=== PATIENT | female | born 1980 | race African-American/Black ===

== ENCOUNTER 2023-08-02 18:25 | Emergency (ER) | payer OTHER ==
--- OUTSIDE RECORDS SUMMARY | 2023-08-02 18:29 | XMS REPORT | Continuity of Care Document ---
Author Name Unknown Address [address] [facility] [address] [place] [address] [facility] Address [address] [facility] [address] [place] [address] Care Team Providers Care Leg Man Name Role Phone Anand Garcia Attending Clinician Unavailable Stevan Attending Clinician UnavailAlondra Barrios Attending Clinician Unavailable Robin Baker Attending Clinician Unavailable Ap Lujan Attending Clinician Unavailable Stevan Admitting Clinician UnavailDean Palacios Admitting Clinician Unavailable Physician, No Primary Care Admitting Clinician U navailable Payers Payer Name Policy Type Policy Number Effective Date Expirati on Date Source [place]IC[place]: [email or web address] [id number] 2004 00:00:00 Problems Condition Name Condition Details Condition Category Status Onset Date Resolution Date Last Treatment Date Treating Clinician Comments Source Seizure Seizure Problem Active 2021-08 00:00: 00 [facility] Sleep disorder Sleep Disorder Problem Active 2021-08 00:00: 00 [facility] Prediabete s Prediabete s Problem Active 2021-08 00:00: 00 [facility] Chronic insomnia Chronic Insomnia Problem Active 2021-08 00:00: 00 [facility] Morbid obesity Morbid Obesity Problem Active 2021-08 00:00: 00 [facility] Anxiety Anxiety Problem Active 2021-08 00:00: 00 [facility] Chronic pain syndrome Chronic Pain Syndrome Problem Active 2021-08 00:00: 00 [facility] [id number] Other chronic pain Problem [facility] [id number] Lumbago with sciatica, left side Problem [facility] [id number] Irregular menses Problem [facility] [id number] Anemia, unspecifie d type Problem [facility] [id number] Pain in unspecifie d knee Problem [facility] [id number] Primary insomnia Problem [facility] [id number] Tension headache Problem [facility] Allergies, Adverse Reactions, Alerts Allergy Name Allergy Type Status Severity Reaction(s) Onset Date Inactive Date Treating Clinician Comments Source No Known Allergie s DA Active U 2011-08 00:00: 00 [facility] Social History Social Habit Start Date Stop Date Quantity Comments Source History of Tobacco Use Current Smoker [facility] Sex Assigned At Female [facility] Smoking Status Start Date Stop Date Source Never Smoker [facility] Current Smoker 2022-07-20 00:00:00 [facility] lin Medications Ordered Medication Name Filled Medication Name Start Date Stop Date Current Medication? Ordering Clinician Indication Dosage Frequency Signature (SIG) Comments Components Source Melatonin 10 MG Melatonin 10 MG 2021-08 00:00: 00 No QD Melatonin 10 MG Clotrimazol e 1 % Clotrimazol e 1 % 01-08 00:00: 00 No BID Clotrimazo le 1 % Terbinafine HCl 250 MG Terbinafine HCl 250 MG 01-08 00:00: 00 No 1{table t} QD Terbinafin e HCl 250 MG Cetirizine HCl 10 MG Cetirizine HCl 10 MG No 1{table t} QD Cetirizine HCl 10 MG Ibuprofen 800 MG Ibuprofen 800 MG No BID Ibuprofen 800 MG Ferrous Sulfate 325 (65 Fe) MG Ferrous Sulfate 325 (65 Fe) MG No 1{table t} QD Ferrous Sulfate 325 (65 Fe) MG zolpidem 10 mg tablet zolpidem 10 mg tablet No zolpidem 10 mg tablet [facility] cyclobenzap rine 10 mg tablet TAKE 1 TABLET BY MOUTH EVERY 8 HOURS NEEDED FOR PAIN OR MUSCLE SPASMS cyclobenzap rine 10 mg tablet TAKE 1 TABLET BY MOUTH EVERY 8 HOURS NEEDED FOR PAIN OR MUSCLE SPASMS No cyclobenza raffi 10 mg tablet TAKE 1 TABLET BY MOUTH EVERY 8 HOURS NEEDED FOR PAIN OR MUSCLE SPASMS [facility] diazepam 5 mg tablet Take 1 tablet 3 times a day by oral route. diazepam 5 mg tablet Take 1 tablet 3 times a day by oral route. No 1 TID diazepam 5 mg tablet Take 1 tablet 3 times a day by oral route. [facility] ergocalcife rol (vitamin D2) 1,250 mcg (50,000 unit) capsule TAKE 1 CAPSULE BY MOUTH EVERY WEEK ergocalcife rol (vitamin D2) 1,250 mcg (50,000 unit) capsule TAKE 1 CAPSULE BY MOUTH EVERY WEEK No ergocalcif kadi (vitamin D2) 1,250 mcg (50,000 unit) capsule TAKE 1 CAPSULE BY MOUTH EVERY WEEK [facility] FeroSul 325 mg (65 mg iron) tablet TAKE 1 TABLET BY MOUTH TWICE DAILY FeroSul 325 mg (65 mg iron) tablet TAKE 1 TABLET BY MOUTH TWICE DAILY No FeroSul 325 mg (65 mg iron) tablet TAKE 1 TABLET BY MOUTH TWICE DAILY [facility] furosemide 40 mg tablet TAKE 1 TABLET BY MOUTH EVERY DAY furosemide 40 mg tablet TAKE 1 TABLET BY MOUTH EVERY DAY No furosemide 40 mg tablet TAKE 1 TABLET BY MOUTH EVERY DAY [facility] ibuprofen 800 mg tablet TAKE 1 TABLET BY MOUTH THREE TIMES DAILY NEEDED FOR PAIN ibuprofen 800 mg tablet TAKE 1 TABLET BY MOUTH THREE TIMES DAILY NEEDED FOR PAIN No ibuprofen 800 mg tablet TAKE 1 TABLET BY MOUTH THREE TIMES DAILY NEEDED FOR PAIN [facility] nabumetone 500 mg tablet Take 1 tablet twice a day by oral route. nabumetone 500 mg tablet Take 1 tablet twice a day by oral route. No 1 BID nabumetone 500 mg tablet Take 1 tablet twice a day by oral route. [facility] potassium chloride ER 8 mEq tablet,exte nded release TAKE 1 TABLET BY MOUTH EVERY DAY potassium chloride ER 8 mEq tablet,exte nded release TAKE 1 TABLET BY MOUTH EVERY DAY No potassium chloride ER 8 mEq tablet,ext ended release TAKE 1 TABLET BY MOUTH EVERY DAY [facility] zolpidem 10 mg tablet zolpidem 10 mg tablet No zolpidem 10 mg tablet [facility] ergocalcife rol (vitamin D2) 1,250 mcg (50,000 unit) capsule TAKE 1 CAPSULE BY MOUTH EVERY WEEK ergocalcife rol (vitamin D2) 1,250 mcg (50,000 unit) capsule TAKE 1 CAPSULE BY MOUTH EVERY WEEK No ergocalcif kadi (vitamin D2) 1,250 mcg (50,000 unit) capsule TAKE 1 CAPSULE BY MOUTH EVERY WEEK [facility] FeroSul 325 mg (65 mg iron) tablet TAKE 1 TABLET BY MOUTH TWICE DAILY FeroSul 325 mg (65 mg iron) tablet TAKE 1 TABLET BY MOUTH TWICE DAILY No FeroSul 325 mg (65 mg iron) tablet TAKE 1 TABLET BY MOUTH TWICE DAILY [facility] furosemide 40 mg tablet TAKE 1 TABLET BY MOUTH EVERY DAY furosemide 40 mg tablet TAKE 1 TABLET BY MOUTH EVERY DAY No furosemide 40 mg tablet TAKE 1 TABLET BY MOUTH EVERY DAY [facility] ibuprofen 800 mg tablet TAKE 1 TABLET BY MOUTH THREE TIMES DAILY NEEDED FOR PAIN ibuprofen 800 mg tablet TAKE 1 TABLET BY MOUTH THREE TIMES DAILY NEEDED FOR PAIN No ibuprofen 800 mg tablet TAKE 1 TABLET BY MOUTH THREE TIMES DAILY NEEDED FOR PAIN [facility] Ozempic 1 mg/dose (4 mg/3 mL) subcutaneou s pen injector Inject 1 mg every week by subcutaneou s route for 84 days. Ozempic 1 mg/dose (4 mg/3 mL) subcutaneou s pen injector Inject 1 mg every week by subcutaneou s route for 84 days. No 1mg Q1W Ozempic 1 mg/dose (4 mg/3 mL) subcutaneo us pen injector Inject 1 mg every week by subcutaneo us route for 84 days. [facility] potassium chloride ER 8 mEq tablet,exte nded release TAKE 1 TABLET BY MOUTH ONCE DAILY potassium chloride ER 8 mEq tablet,exte nded release TAKE 1 TABLET BY MOUTH ONCE DAILY No potassium chloride ER 8 mEq tablet,ext ended release TAKE 1 TABLET BY MOUTH ONCE DAILY [facility] zolpidem 10 mg tablet zolpidem 10 mg tablet No zolpidem 10 mg tablet [facility] ergocalcife rol (vitamin D2) 1,250 mcg (50,000 unit) capsule TAKE 1 CAPSULE BY MOUTH EVERY WEEK ergocalcife rol (vitamin D2) 1,250 mcg (50,000 unit) capsule TAKE 1 CAPSULE BY MOUTH EVERY WEEK No ergocalcif kadi (vitamin D2) 1,250 mcg (50,000 unit) capsule TAKE 1 CAPSULE BY MOUTH EVERY WEEK [facility] FeroSul 325 mg (65 mg iron) tablet TAKE 1 TABLET BY MOUTH TWICE DAILY FeroSul 325 mg (65 mg iron) tablet TAKE 1 TABLET BY MOUTH TWICE DAILY No FeroSul 325 mg (65 mg iron) tablet TAKE 1 TABLET BY MOUTH TWICE DAILY [facility] furosemide 40 mg tablet TAKE 1 TABLET BY MOUTH EVERY DAY furosemide 40 mg tablet TAKE 1 TABLET BY MOUTH EVERY DAY No furosemide 40 mg tablet TAKE 1 TABLET BY MOUTH EVERY DAY [facility] ibuprofen 800 mg tablet TAKE 1 TABLET BY MOUTH THREE TIMES DAILY NEEDED FOR PAIN ibuprofen 800 mg tablet TAKE 1 TABLET BY MOUTH THREE TIMES DAILY NEEDED FOR PAIN No ibuprofen 800 mg tablet TAKE 1 TABLET BY MOUTH THREE TIMES DAILY NEEDED FOR PAIN [facility] Ozempic 1 mg/dose (4 mg/3 mL) subcutaneou s pen injector Inject 1 mg every week by subcutaneou s route for 84 days. Ozempic 1 mg/dose (4 mg/3 mL) subcutaneou s pen injector Inject 1 mg every week by subcutaneou s route for 84 days. No 1mg Q1W Ozempic 1 mg/dose (4 mg/3 mL) subcutaneo us pen injector Inject 1 mg every week by subcutaneo us route for 84 days. [facility] potassium chloride ER 8 mEq tablet,exte nded release TAKE 1 TABLET BY MOUTH ONCE DAILY potassium chloride ER 8 mEq tablet,exte nded release TAKE 1 TABLET BY MOUTH ONCE DAILY No potassium chloride ER 8 mEq tablet,ext ended release TAKE 1 TABLET BY MOUTH ONCE DAILY [facility] Vital Signs Vital Name Observation Time Observation Value Comments S ource BP Diastolic 2022-12-01 00:00:00 70 mm[Hg] [facility] Height 2022-12-01 00:00:00 65 [in_i] [place] [facility] BMI (Body Mass Index) 2022-12-01 00:00:00 41.6 kg/m2 [facility] BP Systolic 2022-12-01 00:00:00 110 mm[Hg] [facility] Body Weight 2022-12-01 00:00:00 249.8 [lb_av] [facility] BP Diastolic 2022-08-24 00:00:00 80 mm[Hg] [facility] Height 2022-08-24 00:00:00 65 [in_i] [place] [facility] BMI (Body Mass Index) 2022-08-24 00:00:00 42.1 kg/m2 [facility] BP Systolic 2022-08-24 00:00:00 130 mm[Hg] [facility] Body Weight 2022-08-24 00:00:00 253 [lb_av] [facility] temperature 2022-07-20 10:00:00 97.8 [degF] [facility] heart rate 2022-07-20 10:00:00 68 /min [facility] height-cm 2022-07-20 10:00:00 154.94 cm [facility] weight-kg 2022-07-20 10:00:00 115.67 kg [facility] bmi 2022-07-20 10:00:00 48.18 kg/m2 [facility] respiratory rate 2022-07-20 10:00:00 22 /min [facility] oximetry 2022-07-20 10:00:00 98 % [facility] blood pressure systolic 2022-07-20 10:00:00 148 mm[Hg] [facility] blood pressure diastolic 2022-07-20 10:00:00 69 mm[Hg] [facility] Procedures Procedure Date / Time Performed Performing Clinicia n Source MAMMO, screening, bilateral 2022-12-01 00:00:00 [facility] Section 2012-08-28 00:00:00 [facility] Section 2010-08-28 00:00:00 [facility] Section 2008-08-28 00:00:00 [facility] Procedure on Stomach 2007-08-28 00:00:00 [facility] Section 2007-08-28 00:00:00 [facility] Practice Section 2006-08-28 00:00:00 [facility] Section 2004-08-28 00:00:00 [facility] Leg Repair 1991-08-28 00:00:00 [facility] Plan of Care Planned Activity Planned Date Details Comments Source Diagnostic Test Pending 2022-12-01 00:00:00 CBC w/ auto diff [code = CBC w/ auto diff] [facility] Diagnostic Test Pending 2022-12-01 00:00:00 CMP, serum or plasma [code = CMP, serum or plasma] [facility] Diagnostic Test Pending 2022-12-01 00:00:00 lipid panel, serum [code = lipid panel, serum] [facility] Diagnostic Test Pending 2022-12-01 00:00:00 TSH, serum or plasma [code = TSH, serum or plasma] [facility] Diagnostic Test Pending 2022-12-01 00:00:00 HbA1c (hemoglobin A1c), blood [code = HbA1c (hemoglobin A1c), blood] [facility] Instructions [facility] Encounters Start Date/Time End Date/Time Encounter Type Admission Type Attending [facility] Care Department Encounter ID Source 2023-03-24 10:51:00 Outpatient Anand Garcia MALABAR [id number] [facility] 2022-07-20 11:02:02 [facility] [id number] [facility] 2022-07-18 11:38:02 Outpatient Jose [facility] [id number] [facility] 2022-01-13 11:45:02 Outpatient Garcia [facility] [id number] [facility] 2023-02-15 00:00:00 2023-02-15 00:00:00 Outpatient Merced AKBAR [facility] [id number] [facility] 2022-12-01 00:00:00 2022-12-01 00:00:00 Outpatient Hunter [facility] [id number] [facility] 2022-12-01 00:00:00 2022-12-01 00:00:00 Bud Cedeno MD: [id number] [facility], [address], [place] [address] , [facility]. [facility] [place] [facility] [place] - VM_HOU_Memo rial [id number] [facility] 2022-10-20 00:00:00 2022-10-20 00:00:00 [facility] [id number] [facility] 2022-10-20 00:00:00 2022-10-20 00:00:00 Outpatient Franquiz_J VFP VFP [id number] [facility] 2022-08-24 00:00:00 2022-08-24 00:00:00 Outpatient Franquiz_J VFP VFP [id number] [facility] 2022-08-24 00:00:00 2022-08-24 00:00:00 Outpatient Franquiz_J VFP VFP [id number] [facility] 2022-08-24 00:00:00 2022-08-24 00:00:00 Bud Cedeno MD: [id number] [facility], [address], [place] [address] , Ph. [facility] [place] - [facility] [place] - [facility] [id number] [facility] 2022-08-12 00:00:00 2022-08-12 00:00:00 Outpatient Franquiz_J VFP VFP [id number] [facility] 2022-08-12 00:00:00 2022-08-12 00:00:00 Outpatient Franquiz_J VFP VFP [id number] [facility] 2022-07-20 00:00:00 2022-07-20 00:00:00 E/M OFFICE VISIT EST PATIENT LEVEL 3 [facility] [id number] [facility] 2022-07-12 09:48:00 2022-07-12 12:30:00 Emergency EM Alondra Sagastume [facility] [id number] [facility] 2022-03-24 23:04:00 2022-03-25 02:17:00 Emergency EM Robin BakerWDesmond S[facility] [id number] [facility] 2022-03-24 23:04:00 2022-03-25 02:17:00 Emergency EM [facility] [id number] [facility] 2022-02-15 09:26:00 2022-02-15 11:12:00 [facility] [id number] [facility] 2022-02-15 09:26:00 2022-02-15 11:12:00 Emergency EM [facility] [id number] [facility] 2021-02-24 08:46:00 2021-02-24 08:50:00 Emergency EM Ap Lujan [facility] G[facility]I [id number] [facility] 2019-08-31 15:59:00 2019-09-03 02:52:46 Inpatient [facility] [id number] [facility] Results Test Description Test Time Test Comments Results Resul t Comments Source - XR KNEE 3 V LT 2022-07-12 11:23:00 [facility] 1980 Sex: F Patient Name: RAIN CHA Unit No: [id number] EXAMS: CPT CODE: [id number] XR KNEE 3 V LT [id number] EXAMINATION: - XR KNEE 3 V LT. LOCATION: B2. HISTORY: KNEE PAIN. COMPARISON: Radiograph dated 05/21/2018. TECHNIQUE: AP, lateral, and oblique views of the left knee were obtained. FINDINGS: There is depression of the medial tibial plateau with sclerosis, similar to prior exam. No acute fracture or dislocation is identified. Surgical staple is seen in the posteromedial proximal tibia, similar to prior exam. IMPRESSION: No acute osseous abnormality is identified. Remote medial tibial plateau injury, similar to prior exam. at 1123 Reported and signed by: Savi Corbin MD CC: Dean Dubon MD; Jaun Hood NP Technologist: Alla Rodriguez (RT)(R) Transcrpt Date/Tm/Trnsp: 07/12/2022 (1123) [email or web address] Orig Print D/T: S: 07/12/2022 (1126) [facility] NAME: RAIN CHA [id number] PHYS: [id number] - Erwin,Jaun LÓ[place] [address] : 1980 AGE: 41 SEX: F LOC: ZMAE PHONE #: [phone] EXAM DATE: 07/12/2022 STATUS: REG ER FAX #: [phone] RADIOLOGY NO: PAGE 1 Signed Report - CT HEAD/BRAIN W/O CONT 2022-03-25 01:46:00 [facility] 1980 Sex: F Patient Name: RAIN CHA Unit No: [id number] EXAMS: CPT CODE: [id number] CT HEAD/BRAIN W/O CONT 45106 CT of the brain without contrast and cervical spine CT facial bones without IV contrast. History: Headache Technique: Contiguous axial images were obtained from the skull base to the vertex without the administration of intravenous contrast. Contiguous axial CT images were obtained from the skull base through T1 without contrast. Coronal and sagittal reformatted images of the cervical spine were also performed. CT of the facial without IV contrast was also performed One or more of the following dose reduction techniques were used: Automated exposure control, adjustment of the mA and/or kV according to patient size, and/or utilization of iterative reconstruction technique. Comparison: None available Findings: CT brain: The ventricles and sulci are normal in size and symmetric. The basal cisterns are patent. There is no mass effect or midline shift. There is no acute intracranial hemorrhage. There are no extra-axial fluid collections. CT of the facial bones: Beam hardening from patient's dental work limits evaluation. No evidence of an acute fracture or dislocation. No intraconal collection or induration is seen to suggest retrobulbar hematoma. The paranasal sinuses and mastoid air cells are relatively clear. CT cervical spine: The cervical spine is visualized from the skull base through T1. No evidence of acute fracture or traumatic subluxation demonstrated. No paraspinal soft tissue swelling is noted. No significant degenerative changes are seen. Impression: No acute intracranial hemorrhage or significant mass effect. No acute traumatic osseous cervical injury No acute facial bone fracture or dislocation within limitations above [facility] NAME: RAIN CHA PHYS: [place] [address] : 1980 AGE: 41 SEX: F LOC: [employer] PHONE #: [phone] EXAM DATE: 03/25/2022 STATUS: REG ER FAX #: [phone] RAD #: D/C DT PAGE 1 Signed Report (CONTINUED) Patient Name: RAIN CHA Unit No: [id number] EXAMS: CPT CODE: [id number] CT HEAD/BRAIN W/O CONT 52149 (Continued) at 0146 Reported and signed by: Francine Lyon CC: Dean Dubon MD; Robin Baker MD Technologist: Jhonny Dodson CTDI: DLP: Trnscrpt: 03/25/2022 (0146) [email or web address] [facility] NAME: RAIN CHA PHYS: Robin Peter MD [place] [id number] : 1980 AGE: 41 SEX: F LOC: Z[employer] PHONE #: [phone] EXAM DATE: 03/25/2022 STATUS: REG ER FAX #: [phone] RAD #: D/C DT PAGE 2 Signed Report Patient Name: RAIN CHA Unit No: [id number] EXAMS: CPT CODE: [id number] CT HEAD/BRAIN W/O CONT 07907 (Continued) Orig Print D/T: S: 03/25/2022 (0149) [facility] NAME: RAIN CHA [id number] PHYS: [place] [address] : 1980 AGE: 41 SEX: F LOC: HEATH PHONE #: [phone] EXAM DATE: 03/25/2022 STATUS: REG ER FAX #: [phone] RAD #: D/C DT PAGE 3 Signed Report - CT C-SPINE W/O CONT 2022-03-25 01:46:00 [facility] 1980 Sex: F Patient Name: RAIN CHA Unit No: [id number] EXAMS: CPT CODE: [id number] CT C-SPINE W/O CONT 79198 CT of the brain without contrast and cervical spine CT facial bones without IV contrast. History: Headache Technique: Contiguous axial images were obtained from the skull base to the vertex without the administration of intravenous contrast. Contiguous axial CT images were obtained from the skull base through T1 without contrast. Coronal and sagittal reformatted images of the cervical spine were also performed. CT of the facial without IV contrast was also performed One or more of the following dose reduction techniques were used: Automated exposure control, adjustment of the mA and/or kV according to patient size, and/or utilization of iterative reconstruction technique. Comparison: None available Findings: CT brain: The ventricles and sulci are normal in size and symmetric. The basal cisterns are patent. There is no mass effect or midline shift. There is no acute intracranial hemorrhage. There are no extra-axial fluid collections. CT of the facial bones: Beam hardening from patient's dental work limits evaluation. No evidence of an acute fracture or dislocation. No intraconal collection or induration is seen to suggest retrobulbar hematoma. The paranasal sinuses and mastoid air cells are relatively clear. CT cervical spine: The cervical spine is visualized from the skull base through T1. No evidence of acute fracture or traumatic subluxation demonstrated. No paraspinal soft tissue swelling is noted. No significant degenerative changes are seen. Impression: No acute intracranial hemorrhage or significant mass effect. No acute traumatic osseous cervical injury No acute facial bone fracture or dislocation within limitations above [facility] NAME: RAIN CHA PHYS: [place] [address] : 1980 AGE: 41 SEX: F LOC: [employer] PHONE #: [phone] EXAM DATE: 03/25/2022 STATUS: REG ER FAX #: [phone] RAD #: D/C DT PAGE 1 Signed Report (CONTINUED) Patient Name: RAIN CHA Unit No: [id number] EXAMS: CPT CODE: [id number] CT C-SPINE W/O CONT 85250 (Continued) at 0146 Reported and signed by: Francine Lyon CC: Dean Dubon MD; Robin Baker MD Technologist: Jhonny Dodson CTDI: DLP: Trnscrpt: 03/25/2022 (0146) [email or web address] [facility] NAME: RAIN CHA PHYS: [place] [address] : 1980 AGE: 41 SEX: F LOC: [employer] PHONE #: [phone] EXAM DATE: 03/25/2022 STATUS: REG ER FAX #: [phone] RAD #: D/C DT PAGE 2 Signed Report Patient Name: RAIN CHA Unit No: [id number] EXAMS: CPT CODE: [id number] CT C-SPINE W/O CONT 95970 (Continued) Orig Print D/T: S: 03/25/2022 (0149) [facility] NAME: RAIN CHA [id number] PHYS: [place] [address] : 1980 AGE: 41 SEX: F LOC: Jose AlfredoMAE PHONE #: [phone] EXAM DATE: 03/25/2022 STATUS: REG ER FAX #: [phone] RAD #: D/C DT PAGE 3 Signed Report - CT MAXIFAC W/O CONTRAST 2022-03-25 01:46:00 [facility] 1980 Sex: F Patient Name: RAIN CHA Unit No: [id number] EXAMS: CPT CODE: [id number] CT MAXIFAC W/O CONTRAST 89008 CT of the brain without contrast and cervical spine CT facial bones without IV contrast. History: Headache Technique: Contiguous axial images were obtained from the skull base to the vertex without the administration of intravenous contrast. Contiguous axial CT images were obtained from the skull base through T1 without contrast. Coronal and sagittal reformatted images of the cervical spine were also performed. CT of the facial without IV contrast was also performed One or more of the following dose reduction techniques were used: Automated exposure control, adjustment of the mA and/or kV according to patient size, and/or utilization of iterative reconstruction technique. Comparison: None available Findings: CT brain: The ventricles and sulci are normal in size and symmetric. The basal cisterns are patent. There is no mass effect or midline shift. There is no acute intracranial hemorrhage. There are no extra-axial fluid collections. CT of the facial bones: Beam hardening from patient's dental work limits evaluation. No evidence of an acute fracture or dislocation. No intraconal collection or induration is seen to suggest retrobulbar hematoma. The paranasal sinuses and mastoid air cells are relatively clear. CT cervical spine: The cervical spine is visualized from the skull base through T1. No evidence of acute fracture or traumatic subluxation demonstrated. No paraspinal soft tissue swelling is noted. No significant degenerative changes are seen. Impression: No acute intracranial hemorrhage or significant mass effect. No acute traumatic osseous cervical injury No acute facial bone fracture or dislocation within limitations above [facility] NAME: RAIN CHA PHYS: Robin Peter MD [place] [id number] : 1980 AGE: 41 SEX: F LOC: Z.ERS PHONE #: [phone] EXAM DATE: 03/25/2022 STATUS: REG ER FAX #: [phone] RAD #: D/C DT PAGE 1 Signed Report (CONTINUED) Patient Name: RAIN CHA Unit No: [id number] EXAMS: CPT CODE: [id number] CT MAXIFAC W/O CONTRAST 70580 (Continued) at 0146 Reported and signed by: Francine Lyon CC: Dean Dubon MD; Robin Baker MD Technologist: Jhonny Dodson CTDI: DLP: Trnscrpt: 03/25/2022 (0146) t.SDR.SR31 [facility] NAME: RAIN CHA PHYS: [place] [address] : 1980 AGE: 41 SEX: F LOC: Z.ERS PHONE #: [phone] EXAM DATE: 03/25/2022 STATUS: REG ER FAX #: [phone] RAD #: D/C DT PAGE 2 Signed Report Patient Name: RAIN CHA Unit No: [id number] EXAMS: CPT CODE: [id number] CT MAXIFAC W/O CONTRAST 04169 (Continued) Orig Print D/T: S: 03/25/2022 (0149) [facility] NAME: RAIN CHA [id number] PHYS: [place] [address] : 1980 AGE: 41 SEX: F LOC: Z.ERS PHONE #: [phone] EXAM DATE: 03/25/2022 STATUS: REG ER FAX #: [phone] RAD #: D/C DT PAGE 3 Signed Report - XR CHEST 1V 2022-03-25 00:18:00 [facility] 1980 Sex: F Patient Name: RAIN CHA Unit No: [id number] EXAMS: CPT CODE: [id number] XR CHEST 1V 33952 EXAM: - XR CHEST 1V Location code:C3 HISTORY: Chest Pain COMPARISON: 01/28/2019 FINDINGS: Single AP view of the chest is provided. Heart size and vascularity are within normal limits. The lungs are clear of focal consolidation. No effusion, pneumothorax, or acute osseous abnormality. IMPRESSION: 1. No radiographic evidence of acute cardiopulmonary process. at 0018 Reported and signed by: Sumit Fields MD CC: Dean Dubon MD; Robin Baker MD Technologist: Christa Bello, RT(R) Transcrpt Date/Tm/Trnsp: 03/25/2022 (0018) [email or web address] Orig Print D/T: S: 03/25/2022 (0021) [facility] NAME: RAIN CHA [id number] PHYS: [place] [address] : 1980 AGE: 41 SEX: F LOC: Z.ERS PHONE #: [phone] EXAM DATE: 03/24/2022 STATUS: REG ER FAX #: [phone] RADIOLOGY NO: PAGE 1 Signed Report - XR SHOULDER 2+V RT 2022-03-25 00:18:00 [facility] 1980 Sex: F Patient Name: RAIN CHA Unit No: [id number] EXAMS: CPT CODE: [id number] XR SHOULDER 2+V RT 78044 EXAM: - XR SHOULDER 2+V RT HISTORY: Shoulder Pain Location code:C3 COMPARISON: None available time of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 evaluation. Patient was observed ambulating with no difficulty, was in no acute cardio-respiratory distress and no acute neurological changes noted. I discussed physical examination and diagnostic test results with patient including need for follow-up evaluation. I encouraged return to the nearest ED if symptoms change or worsens. Patient verbalizes understanding and states intention to ensure follow-up as advised. Ap Lujan 02/05/19 1552:HPI-Trauma Minor/Fall GeneralInitial Greet Date/Time 01/28/196 Physical Exam Vital SignsVital Signs Interpretation Diagnostics Lab Results InterpretationResults Patient Discharge Departure Vital Signs/ConditionVital Signs Supervising Physician Note MidLv Saw Pt Alone I was available for consultation as needed at all times during the patient's visit in the emergency department. at 2148 at 1552RPT #:[id number] OF REPORTEDEmergency department [id number].[id number] ilable for patient [id number] HCAWU
--- NOTE | 2023-08-02 19:25 | RAD REPORT ---
EXAM DESCRIPTION: RAD - Chest Single View - 08/02/2023 7:19 pm CLINICAL HISTORY: COUGH Chest pain. COMPARISON: <Comparisons> FINDINGS: Portable technique limits examination quality. Mild bilateral pulmonary opacities are present, likely accentuated by under aeration of the lungs. Th is may be related to interstitial infection/ viral bronchitis. The heart is upper limit normal in siz e. No displaced fractures.
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
[2023-08-02 21:15] VITALS: BP 131/108; TEMP 97.4; O2SAT 96
== END 2023-08-02 20:09 | disposition home or self-care (01) ==
LOC: ER 18:25
DX: R51.9 Headache, unspecified (principal); J20.9 Acute bronchitis, unspecified; M54.2 Cervicalgia; V49.49XA Driver injured in collision with other motor vehicles in traffic accident, initial encounter; Z28.310 Unvaccinated for COVID-19
CPT/HCPCS: 71045; 99283

== ENCOUNTER → 2023-10-13 | Emergency (ER) | payer OTHER, SELFPAY ==
--- OUTSIDE RECORDS SUMMARY | 2023-10-13 09:38 | XMS REPORT | Continuity of Care Document ---
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 ovarian cyst measuring 2.4 cm. LOCATION: B2 Impression By: Gregor - Marysol Beckman MD Point of Care TestingPulse Oximetry [...] Result Date Time Pulse Ox 100 02/15 0927 B/P 148/94 02/15 0927 B/P Mean 112 02/15 0927 O2 Delivery Room air 02/15 0927 Temp 98.7 02/15 0927 Pulse 75 02/15 0927 Resp 18 02/15 0927 Last Documented: Result Date Time Pulse Ox 100 02/15 0927 B/P 148/94 02/15 0927 B/P Mean 112 02/15 0927 O2 Delivery Room air 02/15 0927 Temp 98.7 02/15 0927 Pulse 75 02/15 0927 Resp 18 02/15 0927 All vital signs available at the time [...] Discharge/Care PlanReferralsProvider Referral: Vinny Velasquez MD Address: [address] [facility] [address] [place] [address] Provider Referral: Apolinar Escobedo DO Address: [address] [place] [address]. [address] [place] [address] Supervising Physician Note Resident Saw PtThis patient [...] exam and plan. at 1139 at 1144RPT #:[id number] OF REPORTEDEmerencompass health rehabilitation hospital department crqtkx4252-04-78O56:37:00Z.ZWES65533507-4986JFUci ilable for patient miafUVRAXDWXJHCNQN2556-03-08T13:39:41 [facility] 2021-02-24 08:55:00 YPfuxmnpfkb47097787y 8sa4BPHEc44LLnyVakoS8H3SD0Ntr SgwdFbCQ/s4tqOd7C293EX6FX3J0WrHBfE9671-76-14Z74:5 5:[address] [facility] ([facility])EMERGENCY PROVIDER REPORTREPORT#:[id number] REPORT STATUS: SignedDATE:02/24/21 TIME: 0855 PATIENT: RAIN CHA UNIT #: [id number]#: [id number] ROOM/BED:AGE: 40 SEX: F PCP PHYS: Dean Dubon AUTHOR: Clifton Hirsch NP [facility] * ALL edits or amendments must be made on the electronic/computer document * HPI-URI/Cough/Cold Free Text HPI NotesFree Text HPI Bszai04-rsdx-brj female presents to emergency room with complaints [...] 02/24 0847 O2 Delivery Room air 02/24 847 Temp 36.4 02/24 08 Pulse 84 02/24 0847 Resp 16 02/24 847 Last Documented: Result Date Time Pulse Ox 100 02/24 847 B/P 120/72 02/24 847 B/P Mean 88 02/24 847 O2 Delivery Room air 02/24 847 Temp 36.4 02/24 847 Pulse 84 02/24 08 Resp 16 02/24 847 Review of Vital Signs Reviewed Basic Physical [...] 100 On: Room air Interpretation Interpreted by me Pulse oximetry normal Time 846 Re-Evaluation MDM Free Text MDM NotesFree Text MDM Ugivt96-cdcv-qoz female with established seasonal allergies presents to emergency room with allergy exacerbation. No red flags, however patient was given Solu-Medrol in ED today and discharged with Medrol, montelukast, and Flonase for allergy control. Patient is strongly encouraged to follow-up with primary care provider who manages allergies. Given referral to flight instructor. Patient agrees with plan for discharge and outpatient follow-up. Verbalizes intent to seek continued care on an outpatient basis with primary care provider/deburring machine operator. Educated on conditions which warrant immediate medical [...] 0847 Temp 36.4 02/24 0847 Pulse 84 / 0847 Resp 16 02/24 0847 Last Documented: [...] BenefitsPatient Instructions ED Allergic Rhinitis, ED Seasonal AllergyReferralsPatel,Lilian Berlin MD Discharge NoteI have spoken with the [...] or a call to 911. at 0921RPT #:[id number] OF REPORTEDEmergen department panhed1081-40-18Q19:55:00Z.KUQY40792142-9373KKDow ilable for patient pvydIGVTZDFTLBGTRO3867-07-68I34:22:10 [facility] 2021-02-24 08:55:00 VEmyzrfokkb30629852t qbetcQFuCQ4+wgd4Mmqiueep6NUVG VNxZevYmGYc3kpJZq1+AzLWZrQDlyh6gtM3703-00-02F34:5 5:[address] [facility] ([facility])EMERGENCY PROVIDER REPORTREPORT#:[id number] REPORT STATUS: SignedDATE:02/24/21 TIME: 854 PATIENT: RAIN CHA UNIT #: [id number]#: [id number] ROOM/BED:AGE: 40 SEX: F PCP PHYS: Dean Dubon AUTHOR: Clifton Hirsch NP LOCATION: [facility] * ALL edits or amendments must be made on the electronic/computer document * Clifton Hirsch 02/24/21 0855:HPI-URI/Cough/Cold Free Text HPI NotesFree Text HPI Tpgog79-vwca-caf female presents to emergency room with complaints [...] Delivery Room air / 0847 Temp 36.4 02/24 0847 Pulse 84 / 0847 Resp 16 02/24 0847 Last Documented: Result Date Time Pulse Ox 100 / 0847 B/P 120/72 / 0847 B/P Mean 88 / 0847 O2 Delivery Room air / 0847 Temp 36.4 / 0847 Pulse 84 / 0847 Resp 16 02/24 0847 Review of [...] MDM Free Text MDM NotesFree Text MDM Deqyg72-grdf-wjn female with established seasonal allergies presents to emergency room with allergy exacerbation. No red flags, however patient was given Solu-Medrol in ED today and discharged with Medrol, montelukast, and Flonase for allergy control. Patient is strongly encouraged to follow-up with primary care provider who manages allergies. Given referral to flight instructor. Patient agrees with plan for discharge and outpatient follow-up. Verbalizes intent to seek continued care on an outpatient basis with primary care provider/deburring machine operator. Educated on conditions which warrant immediate medical [...] Instructions ED Allergic Rhinitis, ED Seasonal AllergyReferralsPateLilian bursh MD Discharge NoteI have spoken with the [...] the emergency department. at 0921 at 0943RPT #:[id number] OF REPORTLongview Regional Medical Center department chwhvz6506-28-69D63:55:00Z.UHEL34231719-3430BZQjr ilable for patient qcmeMGUURTCTHIKHEJ0352-53-72G18:43:59 [facility] 2019-08-31 16:04:00 LOwofkmeryh68300103W +58MzVoo+ATMbIa5tXhC4pYxwbR+G 5xbCkyeEI5TI7qYMYCrCKR9dVzCLtdym067056-12-10Q62:0 4:[address] [facility] PROVID[facility] REPORTREPORT#:[id number] REPORT STATUS: SignedDATE:08/31/19 TIME: 1604 PATIENT: RAIN CHA UNIT #: [id number]#: [id number] ROOM/BED:AGE: 38 SEX: F PCP PHYS: Dean Dubon AUTHOR: REE PERSAUD LOCATION: [facility] * ALL edits or amendments must be made on the electronic/computer document * HPI-URI/Cough/Cold GeneralConfirmed Patient YesPatient Type New patientInitial Greet Date/Time 08/31/19 5059 PresentationChief Complaint Cough, non-productive, Nasal congestion, Upper [...] )( Date 08/31/19 Discharge/Care PlanCounseled Regarding DiagnosisPrescriptionsprednisone, dmaion, zithromax, albuterol Discharge NoteI have spoken with [...] or a call to 911. at 1758RPT #:[id number] OF REPORTEDEmerencompass health rehabilitation hospital department vobaov2825-17-80I26:04:00Z.WZSV34611241-4711TAApp ilable for patient dgsaNFKRZNQFGZTJOM8387-13-54K34:58:50 [facility] 2019-08-31 16:04:00 KZjbyqkdegz73319455B [facility]/uCX0Bfl2jPJBEXYU7GJSn yUIBNuhk2LQlsScLZ5wrLNVhlWV3j2Z6FS5186-95-72V05:0 4:[address] [facility] ([facility])EMERGENCY PROVIDER REPORTREPORT#:[id number] REPORT STATUS: SignedDATE:08/31/19 TIME: 1604 PATIENT: RAIN CHA UNIT #: [id number]#: [id number] ROOM/BED:AGE: 38 SEX: F PCP PHYS: Dean Dubon AUTHOR: REE PERSAUD LOCATION: [facility] * ALL edits or [...] Result Date Time Pulse Ox 98 08/31 160 B/P 131/84 08/31 1606 B/P Mean 99.5 [...] 131/84 08/31 1606 B/P Mean 99.5 08/31 160 Temp 37.0 08/31 160 Pulse 79 08/31 [...] MidLv Saw Pt AloneI have reviewed the PA/TOPOGRAPHICAL SURVEYOR's note and plan of care. I was available for consultation as needed at all times during the patient's visit in the emergency department, however I was not consulted on this patient's management while in the ED nor did I evalaute this patient. at 1758 at 0958RPT #:[id number] OF REPORTEDEmergen department rvyzip1832-45-39G05:04:00Z.AWOU99055468-5052UASer ilable for patient qwmnSEVGTGDZEQKEKK6219-06-77W26:58:16 [facility] 2019-05-28 08:26:00 TQhsypelwqp09466074+ Yqp9NUsjsZhsLlXyxB/e/+Ie+rbby oyKS57JEs9gB9B+cdSqCbS61uKs08pCkSx9644-08-51C91:2 6:[address] [facility] ([facility])EMERGENCY PROVIDER REPORTREPORT#:[id number] REPORT STATUS: SignedDATE:05/28/19 TIME: 825 PATIENT: RAIN CHA UNIT #: [id number]#: [id number] ROOM/BED:AGE: 38 SEX: F PCP PHYS: No Primary Care PhysicianSERVICE AUTHOR: Marco Najera NP LOCATION: [facility] * ALL edits or [...] 05/28 075 O2 Delivery Room air 05/28 075 Temp 36.6 05/28 759 Pulse 88 05/28 075 Resp 18 05/28 075 Last Documented: Result Date Time Pulse Ox 98 05/28 0759 B/P 104/77 05/28 0759 B/P Mean 86 05/28 075 O2 Delivery Room air 05/28 075 Temp [...] B/P 104/77 / 0759 B/P Mean 86 05/28 0759 O2 Delivery Room air 05/28 075 Temp 36.6 05/28 075 Pulse 88 05/28 0759 Resp 18 05/28 075 Last Documented: Result Date Time Pulse Ox 98 05/28 0759 B/P 104/77 10 0759 B/P Mean 86 / 0759 O2 Delivery Room air 05/28 075 Temp 36.6 05/28 0759 Pulse 88 / 0759 Resp 18 05/28 0759 All vital signs available at the time of this entry have been reviewed. Clinical ImpressionClinical ImpressionPrimary Impression: Back pain Disposition DecisionDischarge )( Discharged to Home Yes )( Time 08 )( Date 05/28/19 Discharge/Care PlanCounseled Regarding Diagnosis, Prescriptions, Need for follow-up, When to returnto EDPrescriptionsrobaxinmotrin at 1726RPT #:[id number] OF REPORTEDEmergency department nhexce9338-89-58I16:26:00Z.WMZO34140613-0478DFNsj ilable for patient nhhdAEGVKYVOEBQPQU9259-32-72U67:26:40 [facility] 2019-05-28 08:26:00 HGpaahugyba45735954n hTcO9dLbonp+yEpU92LfM/QRj3CWU AXvz/dKMoiV7wXwZRz7cK5Sevp64gCxtjg7765-10-90H41:2 6:[address] [facility] ([facility])EMERGENCY PROVIDER REPORTREPORT#:[id number] REPORT STATUS: SignedDATE:05/28/19 TIME: 825 PATIENT: RAIN CHA UNIT #: [id number]#: [id number] ROOM/BED:AGE: 38 SEX: F PCP PHYS: No Primary Care PhysicianSERVICE AUTHOR: Marco Najera NP LOCATION: [facility] * ALL edits or amendments must be made on the electronic/computer document * ReinaldoMarco 05/28/19 0826:HPI-Back Pain Under 40 GeneralConfirmed Patient [...] Temp 36.6 05/28 075 Pulse 88 05/28 0759 Resp 18 05/28 075 Last Documented: Result Date Time Pulse Ox 98 05/28 0759 B/P 104/77 05/28 0759 B/P Mean 86 05/28 0759 O2 Delivery Room air 05/28 075 Temp 36.6 05/28 075 Pulse 88 05/28 0759 Resp 18 05/28 0759 Review of Vital Signs Reviewed Focused PEGeneral/Const [...] Speech NL, Cerebellar NL, Memory NL Re-Evaluation [facility] ED CourseMedication(s) OrderedMedication(s) Ordered:Autonomic Drugs Sig/Fernando Start [...] B/P 104/77 / 0759 B/P Mean 86 05/28 0759 O2 Delivery Room air 05/28 0759 Temp 36.6 05/28 075 Pulse 88 05/28 0759 Resp 18 05/28 0759 Last Documented: Result Date Time Pulse Ox 98 05/28 0759 B/P 104/77 05/28 0759 B/P Mean 86 / 0759 O2 Delivery Room air 05/28 0759 Temp 36.6 05/28 0759 Pulse 88 / 0759 Resp 18 05/28 0759 All vital [...] Presentation)( Sudden in Onset? No at 1726RPT #:[id number] OF REPORTEDEmergency department azjaxb5862-13-26Y84:26:00Z.AZOU67299944-0719WLTiv ilable for patient wwieGRAULTQOJTROMU8870-46-84P93:57:10 [facility] 2019-05-28 08:26:00 GTcxwfzmplf56889688g sOrP6cMipqd+zEeR18KqB/VGx9AMD AXvz/hTHitM4uXxUDc4zU1Cwyy53kZxjzw9877-78-27G14:2 6:[address] [facility] ([facility])EMERGENCY PROVIDER REPORTREPORT#:[id number] REPORT STATUS: SignedDATE:05/28/19 TIME: 825 PATIENT: RAIN CHA UNIT #: [id number]#: [id number] ROOM/BED:AGE: 38 SEX: F PCP PHYS: No Primary Care PhysicianSERVICE AUTHOR: Marco Najera NP LOCATION: [facility] * ALL edits or [...] 05/28 075 O2 Delivery Room air 05/28 075 Temp [...] Pulse 88 05/28 759 Resp 18 05/28 075 Last Documented: Result Date Time Pulse Ox 98 05/28 0759 B/P 104/77 05/28 0759 B/P Mean 86 05/28 075 O2 Delivery Room air 05/28 759 Temp 36.6 05/28 759 Pulse 88 05/28 759 Resp 18 05/28 075 All vital signs [...] Presentation)( Sudden in Onset? No at 1726RPT #:[id number] OF REPORTEDEmergency department udyyno8777-84-90H32:26:00Z.RQIM43940300-9717ELDfr ilable for patient fjmpHBORJQRTSURRZV8212-95-90P26:57:10 [facility] 2019-05-28 08:26:00 NNcscazyoyz05737329M ONCyU+fiJV7wtk/JQPJpu7V85du+V L6XLtn4vVzUdAdfxpDeELmpP2hLW2hER/s5611-09-28V47:2 6:[address] [facility] ([facility])EMERGENCY PROVIDER REPORTREPORT#:[id number] REPORT STATUS: SignedDATE:05/28/19 TIME: 825 PATIENT: RAIN CHA UNIT #: [id number]#: [id number] ROOM/BED:AGE: 38 SEX: F PCP PHYS: No Primary Care PhysicianSERVICE AUTHOR: Marco Najera NP LOCATION: [facility] * ALL edits or [...] Time Pulse Ox 98 05/28 0759 B/P 05/28 0759 B/P Mean 86 05/28 759 O2 Delivery Room air 05/28 759 Temp 36.6 05/28 075 Pulse 88 05/28 075 Resp 18 05/28 075 Last Documented: Result Date Time Pulse Ox 98 05/28 0759 B/P 05/28 0759 B/P Mean 86 05/28 075 O2 Delivery Room air 05/28 075 Temp [...] Time Pulse Ox 98 05/28 0759 B/P 05/28 0759 B/P Mean 86 05/28 759 O2 Delivery Room air 05/28 759 Temp 36.6 05/28 075 Pulse 88 05/28 759 Resp 18 05/28 [...] in Onset? No at 1726 at 1557RPT #:[id number] OF REPORTEDEmergency department ugodgd8197-61-93J52:26:00Z.AFNP58756134-6435HNSpp ilable for patient ytctFWXWLRDIHVGHNZ8823-36-53O74:57:20 [facility] 2019-01-28 22:56:00 EXckwssasbm25348892H lmfSKW/9aZwQNftttC3N63gLmx4G9 qjJUazgZRRMASD3pSeHR0GZ9pa3odISVJy1726-55-79B52:5 6:[address] [facility] ([facility])EMERGENCY PROVIDER REPORTREPORT#:[id number] REPORT STATUS: SignedDATE:01/28/19 TIME: 2255 PATIENT: RAIN CHA UNIT #: [id number]#: [id number] ROOM/BED:AGE: 38 SEX: F PCP PHYS: No Primary Care PhysicianSERVICE AUTHOR: Rory Figueroa LOCATION: [facility] * ALL edits or [...] Focal neuro deficit pres, Distracting injury pres. Thai Head CT Rule None apply, rule negGlasgow Coma Score > Age 5 [place] Coma Score > Age 5 Response Value [...] 87 01/28 2259 Resp 17 01/28 2259 Review of Vital Signs Reviewed Basic Physical [...] 98 On: Room air Interpretation Interpreted by sc, Pulse oximetry normal Time 2258 Re-Evaluation MDM ED CoursePatient Course StableMedication(s) OrderedMedication(s) Ordered:Central Nervous [...] )( Discharged to Home Yes )( Time 2333 )( Date 01/28/19 Discharge/Care PlanCounseled Regarding Diagnosis, [...] to ensure follow-up as advised. at 2148RPT #:[id number] OF REPORTEDEmergency department bpkhtn6599-76-82W80:56:00Z.UIHU37792110-6271TEBnx ilable for patient uznqVBJXOJVBBKZVKE0272-03-45G19:49:01 [facility] 2019-01-28 22:56:00 LQpgrrhvpmc36702455Y nN6JjbDK6TQnG2g83R2qLHoqJABeI ySS3rERcQVCybLLyXabCOx0FsnYXDCvMtA7746-49-21C53:5 6:[address] [facility] ([facility])EMERGENCY PROVIDER REPORTREPORT#:[id number] REPORT STATUS: SignedDATE:01/28/19 TIME: 2255 PATIENT: RAIN CHA UNIT #: [id number]#: [id number] ROOM/BED:AGE: 38 SEX: F PCP PHYS: No Primary Care PhysicianSERVICE AUTHOR: Rory Figueroa LOCATION: [facility] * ALL edits or amendments must be [...] Focal neuro deficit pres, Distracting injury pres. Thai Head CT Rule None apply, rule negGlasgow Coma Score > Age 5 Helena Coma Score > Age 5 Response Value [...] 2250 Report Impression - Status: SIGNED Entered: 01/28/20192329 Impression: Unremarkable rib series.Impression By: Alden Gorman M.D. Imaging StatementRadiographic studies reviewed and considered in the medical decision-making. Point of Care TestingPulse Oximetry Pulse Ox % 98 On: Room air Interpretation Interpreted by me Pulse oximetry normal Time 2258 Re-Evaluation [facility] ED CoursePatient Course StableMedication(s) OrderedMedication(s) Ordered:Central Nervous System Agents Sig/Fernando Start time Last Medication Dose Route Stop Time Status Admin Hydrocodone Bitart/ 1 TAB X1ED STA 01/28 2241 DC 01/28 Acetaminophen PO 01/28 2242 2306 Ibuprofen 800 MG X1ED STA 01/28 2241 DC 01/28 PO 01/28 2242 2306 Safety Concerns Patient [...] 2259 Pulse 87 01/28 2259 Resp 01/28 All vital signs available at the time [...] Lujan 02/05/19 1552:HPI-Trauma Minor/Fall GeneralInitial Greet Date/Time 01/28/192225 Physical Exam Vital SignsVital Signs Interpretation Diagnostics Lab Results InterpretationResults Patient Discharge Departure Vital Signs/ConditionVital Signs Supervising Physician Note MidLv Saw Pt Alone I was available for consultation as needed at all times during the patient's visit in the emergency department. at 2148 at 1552RPT #:[id number] OF REPORTEDEmerencompass health rehabilitation hospital department swmcra3012-85-51W06:56:00Z.MOZO94244643-3277CVNvg ilable for patient zclqCIRAPRPSRZQNLW5305-38-89A70:52:56 HCAWU
[2023-10-13 10:09] LABS: Absolute Lymphocytes (CBC) 1.9 K/uL (0.7-4.9); Hematocrit 30.7 % (36.0-45.0); Lymphocytes % 33.8 % (15.3-44.8); MCV 70.2 fL (80-100); MPV 7.9 fL (7.6-11.3); Platelets 295 thou/uL (152-406); RBC Red Blood Cell Count 4.37 M/uL (3.86-4.86)
[2023-10-13 10:34] LABS: Albumin 3.2 g/dL (3.4-5.0); Bilirubin Direct 0.1 mg/dL (0-0.2); Bilirubin Indirect, Calculated 0.2 mg/dL (0.2-0.8); Bilirubin Total 0.3 mg/dL (0.2-1.0); Potassium 3.9 mEq/L (3.5-5.1); Troponin High Sensitivity 5.1 pg/mL (<58.9)
--- NOTE | 2023-10-13 10:52 | RAD REPORT ---
EXAM DESCRIPTION: CT - Head Brain Wo Cont - 10/13/2023 10:29 am CLINICAL HISTORY: Headache COMPARISON: none TECHNIQUE: Computed axial tomography of the head was obtained. IV contrast was not requested. All CT scans are performed using dose optimization technique as appropriate and may include automated exposure control or mA/KV adjustment according to patient size. FINDINGS: An intracranial bleed is not seen The ventricles are normal in caliber No significant hypodense areas within the brain visualized No extra-axial fluid collection is noted. Fluid within the sinuses/ mastoids is not seen IMPRESSION: No acute intracranial abnormality is seen If patient's symptoms persist MRI of the brain would be recommended
--- NOTE | 2023-10-13 12:39 | RAD REPORT ---
EXAM DESCRIPTION: Katy Single View10/13/2023 10:18 am CLINICAL HISTORY: Chest pain COMPARISON: 2022 FINDINGS: The lungs appear clear of acute infiltrate. The heart is borderline enlarged IMPRESSION: No acute abnormalities displayed
--- NOTE | 2023-10-13 12:50 | ER ---
Nurse's Notes [facility] Name: Chiquis Gregorio Age: 43 yrs Sex: Female : 1980 Arrival Date: 10/13/2023 Time: 09:34 Bed 19 Private MD: Diagnosis: Chest pain, unspecified;Headache;Elevated blood-pressure reading, without diagnosis of hypertension Presentation: 10/13 09:56 Chief complaint: Patient states: headache X 1 -2 weeks, then she started to have chest iw tightness along with the headache. Coronavirus screen: At this time, the client does not indicate any symptoms associated with coronavirus-19. Ebola Screen: Patient negative for fever greater than or equal to 101.5 degrees Fahrenheit, and additional compatible Ebola Virus Disease symptoms Patient denies exposure to infectious person. Patient denies travel to an Ebola-affected area in the 21 days before illness onset. No symptoms or risks identified at this time. Initial Sepsis Screen: Does the patient meet any 2 criteria? No. Patient's initial sepsis screen is negative. Does the patient have a suspected source of infection? No. Patient's initial sepsis screen is negative. Risk Assessment: Do you want to hurt yourself or someone else? Patient reports no desire to harm self or others. Onset of symptoms was October 13, 2023. 09:56 Method Of Arrival: Ambulatory iw 09:56 Acuity: JIMMY 3 iw MOTOR GRADER ROUGH GRADE: 13:02 LMP N/A - control method, Not me1 Historical: - Allergies: 09:57 No Known Allergies; iw - Home Meds: 09:57 None [Active]; iw - Immunization history:: Adult Immunizations not up to date. - Social history:: Smoking status: Patient uses street drugs, marijuana. - Family history:: not pertinent. - Hospitalizations: : No recent hospitalization is reported. Screenin:13 [facility] ED Fall Risk Assessment (Adult) Score/Fall Risk Level 0 - 2 = Low Risk. Abuse iw screen: Denies threats or abuse. Denies injuries from another. Nutritional screening: No deficits noted. Tuberculosis screening: No symptoms or risk factors identified. Assessment: 09:40 General: Appears in no apparent distress. Behavior is calm, cooperative. Pain: iw Complains of pain in chest Pain does not radiate. Quality of pain is described as tightness Pain began Is continuous. Neuro: Level of Consciousness is awake, alert, obeys commands, Oriented to person, place, time, situation, Moves all extremities. Full function. Neuro: Reports headache. Cardiovascular: Reports chest pain, Patient's skin is warm and dry. Respiratory: Respiratory effort is even, unlabored. Derm: Skin is intact, is healthy with good turgor. Musculoskeletal: Range of motion: intact in all extremities. Vital Signs: 09:56 BP 163 / 104; Pulse 68; Resp 19; Temp 98.3; Pulse Ox 100% on R/A; Weight 104.33 kg; iw Height 5 ft. 1 in. ; Pain 10/10; 10:53 BP 171 / 96; Pulse 63; Resp 18; Pulse Ox 100% on R/A; iw 12:57 BP 159 / 108; Pulse 74; Resp 16; Pulse Ox 100% on R/A; me1 09:56 Body Mass Index 43.46 (104.33 kg, 154.94 cm) iw 09:56 Pain Scale: Adult iw ED Course: 09:36 Patient arrived in ED. im 09:37 Miguel Angel Arce MD is Attending Physician. rn 09:55 Zahira Nunez RN is Primary Nurse. iw 09:57 Triage completed. iw 09:58 Arm band placed on. iw 10:01 Initial lab(s) drawn, by me, sent to lab. Inserted saline lock: 22 gauge in right aw1 antecubital area, using aseptic technique. 10:19 XRAY Chest (1 view) In Process Unspecified. EDMS 10:31 CT Head Brain wo Cont In Process Unspecified. EDMS 13:02 No provider procedures requiring assistance completed. IV discontinued, intact, me1 bleeding controlled, No redness/swelling at site. Pressure dressing applied. Patient maintains SpO2 saturation greater than 95% on room air. 13:03 Patient has correct armband on for positive identification. Bed in low position. Call me1 light in reach. Side rails up X 1. Provided Education on: POC. Verbalized understanding.. Client placed on continuous cardiac and pulse oximetry monitoring. NIBP monitoring applied. Administered Medications: No medications were administered Medication: 10:13 VIS not applicable for this client. iw Outcome: 12:49 Discharge ordered by MD. rn 13:03 Discharged to home ambulatory, al1 13:03 Condition: stable 13:03 Discharge instructions given to patient, Instructed on discharge instructions, follow up and referral plans. Demonstrated understanding of instructions, follow-up care, 13:03 Patient left the ED. me1 Signatures: Dispatcher [employer] Zahira Ansari, RN Miguel Angel Daniels MD MD rn Mendoza, Itzel im Warren, Alyssa aw1 Maddi Jones RN RN me1
--- NOTE | 2023-10-13 12:50 | EDPHYS ---
Physician Documentation [facility] Name: Chiquis Gregorio Age: 43 yrs Sex: Female : 1980 Arrival Date: 10/13/2023 Time: 09:34 Bed 19 Private MD: ED Physician Miguel Angel Arce HPI: 10/13 09:54 This 43 yrs old Black Female presents to ER via Unassigned with complaints of Chest rn Pain, Headache. 09:54 The patient or guardian reports chest pain that is located primarily in the chest rn diffusely. 09:55 Onset: 1 week(s) ago. The pain does not radiate. Associated signs and symptoms: rn Pertinent positives: headache, Pertinent negatives: abdominal pain, diaphoresis, lower extremity pain, lower extremity swelling, lightheadedness, near syncope, palpitations, recent travel, shortness of breath, syncope, vomiting. The chest pain is described as aching. Duration: The patient or guardian reports multiple episodes, that are intermittent. Modifying factors: The symptoms are alleviated by nothing. the symptoms are aggravated by nothing. Severity of pain: At its worst the pain was mild in the emergency department the pain is unchanged. The patient has not experienced similar symptoms in the past. Patient reports chest pain and headache for 1 week. Has history of blood pressure problems during but not outside of . No hypertension medication. No fever or recent illness. No trauma. No focal neurological deficit. No shortness of breath. No history of DVT or PE.. 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 - Social history:: Smoking status: Patient uses street drugs, marijuana. - Family history:: not pertinent. - Hospitalizations: : No recent hospitalization is reported. ROS: 09:55 Constitutional: Negative for fever, chills, and weight loss, ENT: Negative for injury, rn pain, and discharge, Neck: Negative for injury, pain, and swelling, Cardiovascular: Positive for chest pain Respiratory: Negative for shortness of breath, cough, wheezing, and pleuritic chest pain, Abdomen/GI: Negative for abdominal pain, nausea, vomiting, diarrhea, and constipation, MS/Extremity: Negative for injury and deformity, Skin: Negative for injury, rash, and discoloration, Neuro: Positive for headache, negative for focal weakness or numbness. No seizure. Exam: 09:55 Constitutional: This is a well developed, well nourished patient who is awake, alert, rn tearful and emotional. Ambulatory to room without difficulty or assistance Head/Face: Normocephalic, atraumatic. Eyes: Pupils equal round and reactive to light, extra-ocular motions intact. Lids and lashes normal. Conjunctiva and sclera are non-icteric and not injected. Cornea within normal limits. Periorbital areas with no swelling, redness, or edema. Neck: Trachea midline, no masses palpated, and no cervical lymphadenopathy. Supple, full range of motion without nuchal rigidity, or vertebral point tenderness. No Meningismus. Cardiovascular: Regular rate and rhythm. No pulse deficits. Respiratory: No increased work of breathing, no retractions or nasal flaring. Abdomen/GI: Soft, non-tender MS/ Extremity: Pulses equal, no cyanosis. Neurovascular intact. Full, normal range of motion. Equal circumference. Neuro: Awake and alert, GCS 15, oriented to person, place, time, and situation. Cranial nerves II-XII grossly intact. Motor strength 5/5 in all extremities. Sensory grossly intact. Cerebellar exam normal. Normal gait. 10:45 ECG was reviewed by the Attending Physician. rn Vital Signs: 09:56 BP 163 / 104; Pulse 68; Resp 19; Temp 98.3; Pulse Ox 100% on R/A; Weight 104.33 kg; iw Height 5 ft. 1 in. ; Pain 10/10; 10:53 BP 171 / 96; Pulse 63; Resp 18; Pulse Ox 100% on R/A; iw 12:57 BP 159 / 108; Pulse 74; Resp 16; Pulse Ox 100% on R/A; me1 09:56 Body Mass Index 43.46 (104.33 kg, 154.94 cm) iw 09:56 Pain Scale: Adult iw MDM: 09:43 Patient medically screened. rn 12:48 Differential diagnosis: acute myocardial infarction, acute pericarditis, anxiety, chest rn wall pain, cholecystitis, Cholelithiasis costochondritis, esophagitis, gastritis, gastroesophageal reflux disease (GERD), pleurisy, pneumonia, pneumothorax. HEART Score: History: Slightly Suspicious (0), ECG: Normal (0), Age: < or = 45 years (0), Risk Factors: No Risk Factors Known (0), Troponin: < or = 1 x Normal Limit (0), Total Score = 0. Data reviewed: vital signs, nurses notes, lab test result(s), EKG, radiologic studies, CT scan, plain films, and as a result, I will discharge patient. Counseling: I had a detailed discussion with the patient and/or guardian regarding the historical points, exam findings, and any diagnostic results supporting the discharge/admit diagnosis, the presence of at least one elevated blood pressure reading (>120/80) during this emergency department visit, lab results, radiology results, the need for outpatient follow up, to return to the emergency department if symptoms worsen or persist or if there are any questions or concerns that arise at home. Response to treatment: the patient's symptoms have mildly improved after treatment, and as a result, I will discharge patient. Special discussion: I discussed with the patient/guardian in detail that at this point there is no indication for admission to the hospital. It is understood, however, that if the symptoms persist or worsen the patient needs to return immediately for re-evaluation. Based on the history and exam findings, there is no indication for further emergent testing or inpatient evaluation. I discussed with the patient/guardian the need to see the primary care provider for further evaluation of the symptoms. ED course: BP improved without intervention here. No acute findings and workup including imaging and CT head. EKG normal. Troponin negative. Possibly due to elevated blood pressure. Patient does not know what her blood pressure normally runs so discussed this with her and the need for a blood pressure diary. Will follow-up with PCP for blood pressure management.. 10/13 09:42 Order name: Basic Metabolic Panel; Complete Time: 10:42 10/13 09:42 Order name: CBC with Diff; Complete Time: 10:42 10/13 09:42 Order name: LFT's; Complete Time: 10:42 10/13 09:42 Order name: NT PRO-BNP; Complete Time: 10:42 10/13 09:42 Order name: Troponin HS; Complete Time: 10:42 10/13 09:42 Order name: XRAY Chest (1 view); Complete Time: 12:46 10/13 09:42 Order name: CT Head Brain wo Cont; Complete Time: 11:21 rn 10/13 09:42 Order name: EKG; Complete Time: 09:43 rn 10/13 09:42 Order name: Cardiac monitoring; Complete Time: 10:04 rn 10/13 09:42 Order name: EKG - Nurse/Tech; Complete Time: 09:58 rn 10/13 09:42 Order name: IV Saline Lock; Complete Time: 10:04 rn 10/13 09:42 Order name: Labs collected and sent; Complete Time: 10: rn 10/13 09:42 Order name: O2 Per Protocol; Complete Time: 11:50 rn 10/13 09:42 Order name: O2 Sat Monitoring; Complete Time: 11:50 rn EC:45 Rate is 60 beats/min. Rhythm is regular. QRS [place] is Normal. MS interval is normal. QRS rn interval is normal. QT interval is normal. No Q waves. T waves are Normal. No ST changes noted. Clinical impression: Normal ECG. Interpreted by me. Reviewed by me. Administered Medications: No medications were administered Disposition Summary: 10/13/23 12:49 Discharge Ordered Notes: Location: Home rn Problem: new rn Symptoms: have improved rn Condition: Stable rn Diagnosis - Chest pain, unspecified rn - Headache rn - Elevated blood-pressure reading, without diagnosis of hypertension rn Followup: rn - With: Private Physician - When: As needed - Reason: Recheck today's complaints, Re-evaluation by your physician Discharge Instructions: - Discharge Summary Sheet rn - Nonspecific Chest Pain, Adult rn - General Headache Without Cause rn - Hypertension, Adult rn Forms: - Medication Reconciliation Form rn - Thank You Letter rn - Antibiotic industrial design intern - Prescription Opioid Use rn - Patient Portal Instructions rn - Leadership Thank You Letter rn Signatures: Dispatcher [employer] Zahira Ansari RN RN Miguel Angel Amaya MD MD rn
[2023-10-13 13:15] VITALS: BP 159/108; TEMP 98.3; O2SAT 100
--- NOTE | 2023-10-13 15:00 | EKG ---
Test Date: 2023-10-13 Test Time: 09:51:30 Watchmaker Apprentice: PEGGY MEASUREMENT RESULTS: Intervals: Rate: 60 TN: 174 QRSD: 90 QT: 382 QTc: 382 [place]: P: 69 TN: 174 QRS: 58 T: 43 INTERPRETIVE STATEMENTS: Normal sinus rhythm with sinus arrhythmia Normal ECG No previous ECG available for comparison Electronically Signed On 10-13-23 14:59:29 TUG BOAT CAPTAIN by Robin Castellon
== END ==
LOC: ER 09:34
DX: R07.9 Chest pain, unspecified (principal); R51.9 Headache, unspecified; R03.0 Elevated blood-pressure reading, without diagnosis of hypertension
CPT/HCPCS: 36415; 70450; 71045; 80048; 80076; 83880; 84484; 85025; 93005; 99284

== ENCOUNTER 2024-09-11 22:31 | Emergency (ER) | payer OTHER ==
--- OUTSIDE RECORDS SUMMARY | 2024-09-11 22:34 | XMS REPORT | Continuity of Care Document ---
Author Name Unknown Address [address] [facility] [address] [place] [address] [facility] Address [address] [place] [address] Care Team Providers Care Stopper Setter Name Role Phone Anand Garcia Attending Clinician Unavailable Stevan Attending Clinician UnavailAlondra Barrios Attending Clinician Unavailable Robin Baker Attending Clinician Unavailable Ap Lujan Attending Clinician Unavailable Stevan Admitting Clinician UnavailDean Palacios Admitting Clinician Unavailable Physician, No Primary Care Admitting Clinician U navailable Payers Payer Name Policy Type Policy Number Effective Date Expirati on Date Source MEDICARE [place]: [employer] [id number] 2004 00:00:00 Problems Condition Name Condition Details Condition Category Status Onset Date Resolution Date Last Treatment Date Treating Clinician Comments Source Seizure Seizure Problem Active 2021-08 00:00: 00 [facility] Sleep disorder Sleep Disorder Problem Active 2021-08 00:00: 00 [facility] Prediabete s Prediabete s Problem Active 2021-08 00:00: 00 [facility] Chronic insomnia Chronic Insomnia Problem Active 2021-08 00:00: 00 [facility] Morbid obesity Morbid Obesity Problem Active 2021-08 00:00: 00 [facility] Anxiety Anxiety Problem Active 2021-08 00:00: 00 [facility] Chronic pain syndrome Chronic Pain Syndrome Problem Active 2021-08 00:00: 00 [facility] [id number] Other chronic pain Problem [facility] [id number] Lumbago with sciatica, left side Problem [facility] [id number] Irregular menses Problem [facility] [id number] Anemia, unspecifie d type Problem [facility] [id number] Pain in unspecifie d knee Problem [facility] [id number] Primary insomnia Problem [facility] [id number] Tension headache Problem [facility] Allergies, Adverse Reactions, Alerts Allergy Name Allergy Type Status Severity Reaction(s) Onset Date Inactive Date Treating Clinician Comments Source No Known Allergie s DA Active U 2011-08 00:00: 00 [facility] Social History Social Habit Start Date Stop Date Quantity Comments Source History of Tobacco Use Current Smoker [facility] Sex Assigned At Female [facility] Smoking Status Start Date Stop Date Source Never Smoker [facility] Current Smoker 2022-07-20 00:00:00 [facility] lin Medications Ordered Medication Name Filled Medication [...] t} QD Terbinafin e HCl 250 MG FeroSul 325 mg (65 mg iron) tablet TAKE 1 TABLET BY MOUTH TWICE DAILY FeroSul 325 mg (65 mg iron) tablet TAKE 1 TABLET BY MOUTH TWICE DAILY No FeroSul 325 mg (65 mg iron) tablet TAKE 1 TABLET BY MOUTH TWICE DAILY [facility] furosemide 40 mg tablet TAKE 1 TABLET BY MOUTH EVERY DAY furosemide 40 mg tablet TAKE 1 TABLET BY MOUTH EVERY DAY No furosemide 40 mg tablet TAKE 1 TABLET BY MOUTH EVERY DAY [facility] ibuprofen 800 mg tablet [...] by subcutaneo us route for 84 days. [facility] potassium chloride ER 8 mEq tablet,exte nded release TAKE 1 TABLET BY MOUTH ONCE DAILY potassium chloride ER 8 mEq tablet,exte nded release TAKE 1 TABLET BY MOUTH ONCE DAILY No potassium chloride ER 8 mEq tablet,ext ended release TAKE 1 TABLET BY MOUTH ONCE DAILY [facility] Cetirizine HCl 10 MG Cetirizine HCl 10 [...] 10 mg tablet [facility] cyclobenzap rine 10 mg tablet TAKE 1 TABLET BY MOUTH EVERY 8 HOURS NEEDED FOR PAIN OR MUSCLE SPASMS cyclobenzap rine 10 mg tablet TAKE 1 TABLET BY MOUTH EVERY 8 HOURS NEEDED FOR PAIN OR MUSCLE SPASMS No cyclobenza raffi 10 mg tablet TAKE 1 TABLET BY MOUTH EVERY 8 HOURS NEEDED FOR PAIN OR MUSCLE SPASMS [facility] diazepam 5 mg tablet Take 1 tablet 3 times a day by oral route. diazepam 5 mg tablet Take 1 tablet 3 times a day by oral route. No 1 TID diazepam 5 mg tablet Take 1 tablet 3 times a day by oral route. [facility] ergocalcife rol (vitamin D2) 1,250 mcg (50,000 unit) capsule TAKE 1 CAPSULE BY MOUTH EVERY WEEK ergocalcife rol (vitamin D2) 1,250 mcg (50,000 unit) capsule TAKE 1 CAPSULE BY MOUTH EVERY WEEK No ergocalcif kadi (vitamin D2) 1,250 mcg (50,000 unit) capsule TAKE 1 CAPSULE BY MOUTH EVERY WEEK [facility] FeroSul 325 mg [...] TAKE 1 TABLET BY MOUTH EVERY DAY [facility] ibuprofen 800 mg tablet TAKE 1 TABLET BY MOUTH THREE TIMES DAILY NEEDED FOR PAIN ibuprofen 800 mg tablet TAKE 1 TABLET BY MOUTH THREE TIMES DAILY NEEDED FOR PAIN No ibuprofen 800 mg tablet TAKE 1 TABLET BY MOUTH THREE TIMES DAILY NEEDED FOR PAIN [facility] nabumetone 500 mg tablet Take 1 tablet twice a day by oral route. nabumetone 500 mg tablet Take 1 tablet twice a day by oral route. No 1 BID nabumetone 500 mg tablet Take 1 tablet twice a day by oral route. [facility] potassium chloride ER 8 mEq tablet,exte nded release TAKE 1 TABLET BY MOUTH EVERY DAY potassium chloride ER 8 mEq tablet,exte nded release TAKE 1 TABLET BY MOUTH EVERY DAY No potassium chloride ER 8 mEq tablet,ext ended release TAKE 1 TABLET BY MOUTH EVERY DAY [facility] zolpidem 10 mg tablet zolpidem 10 mg tablet No zolpidem 10 mg tablet [facility] ergocalcife rol (vitamin D2) 1,250 mcg (50,000 unit) capsule TAKE 1 CAPSULE BY MOUTH EVERY WEEK ergocalcife rol (vitamin D2) 1,250 mcg (50,000 unit) capsule TAKE 1 CAPSULE BY MOUTH EVERY WEEK No ergocalcif kadi (vitamin D2) 1,250 mcg (50,000 unit) capsule TAKE 1 CAPSULE BY MOUTH EVERY WEEK [facility] FeroSul 325 mg (65 mg iron) tablet TAKE 1 TABLET BY MOUTH TWICE DAILY FeroSul 325 mg (65 mg iron) tablet TAKE 1 TABLET BY MOUTH TWICE DAILY No FeroSul 325 mg (65 mg iron) tablet TAKE 1 TABLET BY MOUTH TWICE DAILY [facility] furosemide 40 mg tablet TAKE 1 TABLET BY MOUTH EVERY DAY furosemide 40 mg tablet TAKE 1 TABLET BY MOUTH EVERY DAY No furosemide 40 mg tablet TAKE 1 TABLET BY MOUTH EVERY DAY [facility] ibuprofen 800 mg tablet TAKE 1 TABLET BY MOUTH THREE TIMES DAILY NEEDED FOR PAIN ibuprofen 800 mg tablet TAKE 1 TABLET BY MOUTH THREE TIMES DAILY NEEDED FOR PAIN No ibuprofen 800 mg tablet TAKE 1 TABLET BY MOUTH THREE TIMES DAILY NEEDED FOR PAIN [facility] Ozempic 1 mg/dose [...] by subcutaneo us route for 84 days. [facility] potassium chloride ER 8 mEq tablet,exte nded release TAKE 1 TABLET BY MOUTH ONCE DAILY potassium chloride ER 8 mEq tablet,exte nded release TAKE 1 TABLET BY MOUTH ONCE DAILY No potassium chloride ER 8 mEq tablet,ext ended release TAKE 1 TABLET BY MOUTH ONCE DAILY [facility] zolpidem 10 mg tablet zolpidem 10 mg tablet No zolpidem 10 mg tablet [facility] ergocalcife rol (vitamin D2) 1,250 mcg (50,000 unit) capsule TAKE 1 CAPSULE BY MOUTH EVERY WEEK ergocalcife rol (vitamin D2) 1,250 mcg (50,000 unit) capsule TAKE 1 CAPSULE BY MOUTH EVERY WEEK No ergocalcif kadi (vitamin D2) 1,250 mcg (50,000 unit) capsule TAKE 1 CAPSULE BY MOUTH EVERY WEEK [facility] Vital Signs Vital Name Observation Time Observation Value Comments S ource BP Diastolic 2022-12-01 00:00:00 70 mm[Hg] [facility]day [facility] Height 2022-12-01 00:00:00 65 [in_i] [place] [facility] BMI (Body Mass Index) 2022-12-01 00:00:00 41.6 kg/m2 [facility] BP Systolic 2022-12-01 00:00:00 110 mm[Hg] [facility] Body Weight 2022-12-01 00:00:00 249.8 [lb_av] [facility] BP Diastolic 2022-08-24 00:00:00 80 mm[Hg] [facility] Height 2022-08-24 00:00:00 65 [in_i] [place] [facility] BMI (Body Mass Index) 2022-08-24 00:00:00 42.1 kg/m2 [facility] BP Systolic 2022-08-24 00:00:00 130 mm[Hg] [facility] Body Weight 2022-08-24 00:00:00 253 [lb_av] [facility] temperature 2022-07-20 10:00:00 97.8 [degF] [facility] heart rate 2022-07-20 10:00:00 68 /min [facility] height-cm 2022-07-20 10:00:00 154.94 cm [facility] weight-kg 2022-07-20 10:00:00 115.67 kg [facility] bmi 2022-07-20 10:00:00 48.18 kg/m2 [facility] respiratory rate 2022-07-20 10:00:00 22 /min [facility] oximetry 2022-07-20 10:00:00 98 % [facility] blood pressure systolic 2022-07-20 10:00:00 148 mm[Hg] [facility] blood pressure diastolic 2022-07-20 10:00:00 69 mm[Hg] [facility] Procedures Procedure Date / Time Performed Performing Clinicia n Source MAMMO, screening, bilateral 2022-12-01 00:00:00 [facility] Section 2012-08-28 00:00:00 [facility] Section 2010-08-28 00:00:00 [facility] Practice Section 2008-08-28 00:00:00 [facility] Procedure on Stomach 2007-08-28 00:00:00 [facility] Section 2007-08-28 00:00:00 [facility] Practice Section 2006-08-28 00:00:00 [facility] Practice Section 2004-08-28 00:00:00 [facility] Practice Leg Repair 1991-08-28 00:00:00 [facility] Plan of Care Planned Activity Planned Date Details Comments Source Diagnostic Test Pending 2022-12-01 00:00:00 CBC w/ auto diff [code = CBC w/ auto diff] [facility] Diagnostic Test Pending 2022-12-01 00:00:00 CMP, serum or plasma [code = CMP, serum or plasma] [facility] Diagnostic Test Pending 2022-12-01 00:00:00 lipid panel, serum [code = lipid panel, serum] [facility] Diagnostic Test Pending 2022-12-01 00:00:00 TSH, serum or plasma [code = TSH, serum or plasma] [facility] Diagnostic Test Pending 2022-12-01 00:00:00 HbA1c (hemoglobin A1c), blood [code = HbA1c (hemoglobin A1c), blood] [facility] Instructions [facility] Encounters Start Date/Time End Date/Time Encounter Type Admission Type Attending [facility] Care Facility Care Department Encounter ID Source 2023-03-24 10:51:00 Outpatient Anand Garcia CADOTT [id number] [facility] 2022-07-20 11:02:02 Outpatient Anand Garcia [facility] [id number] [facility] 2022-07-18 11:38:02 [facility] [id number] [facility] 2022-01-13 11:45:02 Outpatient Garcia [facility] [id number] [facility] 2023-11-17 00:00:00 2023-11-17 00:00:00 Outpatient Merced AKBAR VFP VF [id number] [facility] 2023-10-14 00:00:00 2023-10-14 00:00:00 Outpatient Merced AKBAR VFP VFP [id number] [facility] 2023-02-15 00:00:00 2023-02-15 00:00:00 Outpatient Merced AKBAR VFP VFP [id number] [facility] 2022-12-01 00:00:00 2022-12-01 00:00:00 Outpatient Hunter VFP VFP [id number] [facility] 2022-12-01 00:00:00 2022-12-01 00:00:00 Bud Cedeno MD: [id number] [facility], [address] [address] , Ph. VFP [facility] [place] - VM_HOU_Memo rial [id number] [facility] 2022-10-20 00:00:00 2022-10-20 00:00:00 Outpatient Franquiz_J VFP VFP [id number] [facility] 2022-10-20 00:00:00 2022-10-20 00:00:00 Outpatient Franquiz_J VFP VFP [id number] [facility] 2022-08-24 00:00:00 2022-08-24 00:00:00 Outpatient Franquiz_J VFP VFP [id number] [facility] 2022-08-24 00:00:00 2022-08-24 00:00:00 Outpatient Franquiz_J VFP VFP [id number] [facility] 2022-08-24 00:00:00 2022-08-24 00:00:00 Bud Cedeno MD: [id number] [facility], [address] [address] , Ph. VFP [facility] [place] - [facility]Mem[facility] rial [id number] [facility] 2022-08-12 00:00:00 2022-08-12 00:00:00 Outpatient Franquiz_J VFP VFP [id number] [facility] 2022-08-12 00:00:00 2022-08-12 00:00:00 Outpatient Franquiz_J VFP VFP [id number] [facility] 2022-07-20 00:00:00 2022-07-20 00:00:00 E/M OFFICE VISIT EST PATIENT LEVEL 3 [facility] [id number] [facility] 2022-07-12 09:48:00 2022-07-12 12:30:00 Emergency EM Alondra Sagastume [facility] [id number] [facility] 2022-03-24 23:04:00 2022-03-25 02:17:00 Emergency EM Robin Baker [facility] [id number] [facility] 2022-03-24 23:04:00 2022-03-25 02:17:00 Emergency EM Robin Baker [facility] [id number] [facility] 2022-02-15 09:26:00 2022-02-15 11:12:00 Emergency EM Robin Baker [facility] [id number] [facility] 2022-02-15 09:26:00 2022-02-15 11:12:00 [facility] [id number] [facility] 2021-02-24 08:46:00 2021-02-24 08:50:00 Emergency EM Ap Lujan [facility] [id number] [facility] 2019-08-31 15:59:00 2019-09-03 02:52:46 Inpatient [facility] [id number] [facility] Results Test Description Test Time Test Comments Results Resul t Comments Source - XR KNEE 3 V LT 2022-07-12 11:23:00 [facility] 1980 Sex: F Patient Name: RAIN CHA Unit No: [id number] EXAMS: CPT CODE: [id number] XR KNEE 3 V LT 73435 EXAMINATION: - XR KNEE 3 V LT. [...] Alla Rodriguez (RT)(R) Transcrpt Date/Tm/Trnsp: 07/12/2022 (1123) [email or web address] Orig Print D/T: S: 07/12/2022 (1126) [facility] NAME: RAIN CHA [id number] PHYS: [id number] [place] [address] : 1980 AGE: 41 SEX: F LOC: HEATH PHONE #: [phone] EXAM DATE: 07/12/2022 STATUS: REG ER FAX #: [phone] RADIOLOGY NO: PAGE 1 Signed Report - CT HEAD/BRAIN W/O CONT 2022-03-25 01:46:00 [facility] : 1980 Sex: F Patient Name: RAIN CHA Unit No: [id number] EXAMS: CPT CODE: [id number] CT HEAD/BRAIN W/O CONT 53709 CT of the brain without contrast and [...] bone fracture or dislocation within limitations above [facility] NAME: RAIN CHA [id number] PHYS: [place] [address] : 1980 AGE: 41 SEX: F LOC: [facility] PHONE #: [phone] EXAM DATE: 03/25/2022 STATUS: REG ER FAX #: [phone] RAD #: D/C DT PAGE 1 Signed Report (CONTINUED) Patient Name: RAIN CHA Unit No: [id number] EXAMS: CPT CODE: [id number] CT HEAD/BRAIN W/O CONT 48315 (Continued) at 0146 Reported and signed by: Francine Lyon CC: Dean Dubon MD; Robin Baker MD Technologist: Jhonny Dodson CTDI: DLP: Trnscrpt: 03/25/2022 (0146) [email or web address] [facility] NAME: RAIN CHA PHYS: [place] [address] : 1980 AGE: 41 SEX: F LOC: [facility] PHONE #: [phone] EXAM DATE: 03/25/2022 STATUS: REG ER FAX #: [phone] RAD #: D/C DT PAGE 2 Signed Report Patient Name: RAIN CHA Unit No: [id number] EXAMS: CPT CODE: [id number] CT HEAD/BRAIN W/O CONT 94000 (Continued) Orig Print D/T: S: 03/25/2022 (014) [facility] NAME: RAIN CHA PHYS: [place] [address] : 1980 AGE: 41 SEX: F LOC: .ERS PHONE #: [phone] EXAM DATE: 03/25/2022 STATUS: REG ER FAX #: [phone] RAD #: D/C DT PAGE 3 Signed Report - CT C-SPINE W/O CONT 2022-03-25 01:46:00 [facility] : 1980 Sex: F Patient Name: RAIN CHA Unit No: [id number] EXAMS: CPT CODE: [id number] CT C-SPINE W/O CONT 13950 CT of the brain without contrast and [...] bone fracture or dislocation within limitations above [facility] NAME: RAIN CHA [id number] PHYS: [place] [address] : 1980 AGE: 41 SEX: F LOC: HEATH PHONE #: [phone] EXAM DATE: 03/25/2022 STATUS: REG ER FAX #: [phone] RAD #: D/C DT PAGE 1 Signed Report (CONTINUED) Patient Name: RAIN CHA Unit No: [id number] EXAMS: CPT CODE: [id number] CT C-SPINE W/O CONT 36762 (Continued) at 0146 Reported and signed by: Francine Lyon CC: Dean Dubon MD; Robin Baker MD Technologist: Jhonny Dodson CTDI: DLP: Trnscrpt: 03/25/2022 (0146) [email or web address] [facility] NAME: RAIN CHA PHYS: [place] [address] : 1980 AGE: 41 SEX: F LOC: [facility] PHONE #: [phone] EXAM DATE: 03/25/2022 STATUS: REG ER FAX #: [phone] RAD #: D/C DT PAGE 2 Signed Report Patient Name: RAIN CHA Unit No: [id number] EXAMS: CPT CODE: [id number] CT C-SPINE W/O CONT 28286 (Continued) Orig Print D/T: S: 03/25/2022 (0149) [facility] NAME: RAIN CHA PHYS: [place] [address] : 1980 AGE: 41 SEX: F LOC: [facility] PHONE #: [phone] EXAM DATE: 03/25/2022 STATUS: REG ER FAX #: [phone] RAD #: D/C DT PAGE 3 Signed Report - CT MAXIFAC W/O CONTRAST 2022-03-25 01:46:00 [facility] : 1980 Sex: F Patient Name: RAIN CHA Unit No: [id number] EXAMS: CPT CODE: [id number] CT MAXIFAC W/O CONTRAST 06956 CT of the brain without contrast and [...] bone fracture or dislocation within limitations above [facility] NAME: RAIN CHA Randall PHYS: [place] [address] : 1980 AGE: 41 SEX: F LOC: Z.ERS PHONE #: [phone] EXAM DATE: 03/25/2022 STATUS: REG ER FAX #: [phone] RAD #: D/C DT PAGE 1 Signed Report (CONTINUED) Patient Name: RAIN CHA Unit No: [id number] EXAMS: CPT CODE: [id number] CT MAXIFAC W/O CONTRAST 07375 (Continued) at 0146 Reported and signed by: Francine Lyon CC: Dean Dubon MD; Robin Baker MD Technologist: Jhonny Dodson CTDI: DLP: Trnscrpt: 03/25/2022 (0146) [email or web address] [facility] NAME: RAIN CHA PHYS: [place] [address] : 1980 AGE: 41 SEX: F LOC: Jose Alfredo.ERS PHONE #: [phone] EXAM DATE: 03/25/2022 STATUS: REG ER FAX #: [phone] RAD #: D/C DT PAGE 2 Signed Report Patient Name: RAIN CHA Unit No: [id number] EXAMS: CPT CODE: [id number] CT MAXIFAC W/O CONTRAST 12721 (Continued) Orig Print D/T: S: 03/25/2022 (0149) [facility] NAME: RAIN CHA [id number] PHYS: [place] [address] : 1980 AGE: 41 SEX: F LOC: [facility] PHONE #: [phone] EXAM DATE: 03/25/2022 STATUS: REG ER FAX #: [phone] RAD #: D/C DT PAGE 3 Signed Report - XR CHEST 1V 2022-03-25 00:18:00 [facility] : 1980 Sex: F Patient Name: RAIN CHA Unit No: [id number] EXAMS: CPT CODE: [id number] XR CHEST 1V 67094 EXAM: - XR CHEST 1V Location code:C3 [...] Christa Bello, RT(R) Transcrpt Date/Tm/Trnsp: 03/25/2022 (0018) [email or web address] Orig Print D/T: S: 03/25/2022 (0021) [facility] NAME: RAIN CHA [id number] PHYS: [place] [address] : 1980 AGE: 41 SEX: F LOC: ZFernandoERS PHONE #: [phone] EXAM DATE: 03/24/2022 STATUS: REG ER FAX #: [phone] RADIOLOGY NO: PAGE 1 Signed Report - XR SHOULDER 2+V RT 2022-03-25 00:18:00 [facility] : 1980 Sex: F Patient Name: RAIN CHA Unit No: [id number] EXAMS: CPT CODE: [id number] XR SHOULDER 2+V RT 59819 EXAM: - XR SHOULDER 2+V RT HISTORY: [...] Christa Bello, RT(R) Transcrpt Date/Tm/Trnsp: 03/25/2022 (0018) [email or web address] Orig Print D/T: S: 03/25/2022 (0022) [facility] NAME: RAIN CHA [id number] PHYS: [place] [address] : 1980 AGE: 41 SEX: F LOC: Z.ERS PHONE #: [phone] EXAM DATE: 03/24/2022 STATUS: REG ER FAX #: [phone] RADIOLOGY NO: PAGE 1 Signed Report SOURCE OF URINE: CLEAN CATCHUA [id number] 11:19:00* Test Item Value Reference Range Interpretation Comme nts UA RBC (test code = RBCU) >100 RBC/HPF 0-3 A UA WBC (test code = XWBCU) 0-3 WBC/HPF 0-5 UA EPITHELIAL CELLS (test co de = EPIU) RARE EPI/HPF FEW UA BACTERIA (test code = XBACU) RARE NONE SOURCE OF URINE: CLEAN CATCHUR HCG [id number] 11:19:00* Test Item Value Reference Range Interpretation Comme nts UR HCG QUAL (test code = HCGQLU) NEGATIVE NEGATIVE SOURCE OF URINE: CLEAN CATCH- DUP AB/PEL/SC [id number] 10:41:00 [facility] : 1980 Sex: F Patient Name: RAIN CHA Unit No: [id number] EXAMS: CPT CODE: [id number] DUP AB/PEL/SC LTD 39593 EXAM:PELVIC ULTRASOUND INDICATION: BLEEDING COMPARISON: None available TECHNIQUE: Nunez scale, spectral analysis and color doppler imaging of the pelvis was performed via transabdominal approach. FINDINGS:The uterus is normal in size measuring 13.1 [...] ovarian cyst measuring 2.4 cm. LOCATION: B2 Electronically Signed by Marysol Beckman MD on 2at 1041 Reported and signed by: Marysol Beckman MD CC: Dean Dubno MD; Robin Baker MD; Inocencia Marrero MD Technologist: Caty Carrington Transcrpt Date/Tm/Trnsp: 02/15/2022 (1041) 16 Orig Print D/T: S: 02/15/2022 (1044) [facility] NAME: RAIN CHA [id number] PHYS: [place] [address] : 1980 AGE: 41 SEX: F LOC: Z.ERS PHONE #: [phone] EXAM DATE: 02/15/2022 STATUS: REG ER FAX #: [phone] RADIOLOGY NO: PAGE 1 Signed Report- US PELVIS [id number] 10:41:00 [facility] : 1980 Sex: F PatientName: RAIN CHA Unit No: [id number] EXAMS: CPT CODE: [id number] US PELVIS COMPLETE 69120 EXAM:PELVIC ULTRASOUND INDICATION: BLEEDING COMPARISON: None available TECHNIQUE: Nunez scale, spectral analysis and color doppler imaging of the pelvis was performed via transabdominal approach. FINDINGS:The uterus is normal in size measuring 13.1 [...] (1041) 16 Orig Print D/T: S: 02/15/2022 (1044) [facility] NAME: RAIN CHA [id number] PHYS: SOULEANNE99 [place] [address] : 1980 AGE: 41 SEX: F LOC: Z.ERSPHONE #: [phone] EXAM DATE: 02/15/2022 STATUS: REG ER FAX #: [phone] RADIOLOGY NO: PAGE 1Signed ReportCBC W/O DIFF 2022-02-15 10:21:00* Test Item Value Reference Range Interpretation [...] = NRBC#) 0.00 K/mm3 0.0-0.1 N DIFFERENTIAL [id number] 10:21:00* Test Item Value Reference Range Interpretation Comme nts RBC MORPHOLOGY REQUIRED (bailey t code = RBCM) PLATELET ESTIMATE (test code = PLTEST) ADEQUATE PLATELET MORPHOLOGY (test co de = PLTMORPH) NORMAL - XR RIBS UNI W/CXR 3+V [id number] 23:26:00Patient Name: RAIN CHA Unit No: [id number] EXAMS: CPT CODE: [id number] XR RIBS UNI W/CXR 3+V RT 87374 AFTER HOURS SERVICE ON: 01/28/2019 11:26 PM Right Rib Series, 6 Views Location Code M12 History: Pain s/p body motion and blunt trauma in fall Findings: There is normal anatomic alignment. No fracture or dislocation is seen. No remote fractures or callus formations. There are no lytic or blastic changes. There is no pneumothorax. Impression: Unremarkable rib series. Electronically Signedby Madi Gorman on 01/28/2019 at 2326 Reported and signed by: Natanael Gorman M.D. CC: Ap Lujan MD; Rory CARLISLE Technologist: Pako Magallanes, RT(R); Linnea Vanessa RT(R) Transcrpt Date/Tm/Trnsp: 01/28/2019 (2325) [id number] Orig Print D/T: S: 01/28/2019 (7945) [facility] NAME: RAIN CHA [id number] PHYS: [place] [address] : 1980 AGE: 38 SEX: F [facility] #: [phone] EXAM DATE: 01/28/2019 STATUS: PRE ER FAX #: [phone] RADIOLOGY NO: PAGE 1 Signed Report- XR ANKLE 3+V [id number] 23:25:00Patient Name: RAIN CHA Unit No: [id number] EXAMS: CPT CODE: [id number] XR ANKLE 3+V LT 39063 AFTER HOURS SERVICE ON: 01/28/2019 11:23 PM [...] Ap Lujan MD; Rory CARLISLE Technologist: Pako Magallanes, RT(R); Linnea Vanessa RT(R) Transcrpt Date/Tm/Trnsp: 01/28/2019 ([id number]) [id number] Orig Print D/T: S: 01/28/2019 ([id number]) [facility] NAME: RAIN CHA [id number] PHYS: [place] [address] : 1980 AGE: 38 SEX: F LOC: [facility] PHONE #: [phone] EXAM DATE: 01/28/2019 STATUS: PRE ER FAX #: [phone] RADIOLOGY NO: PAGE 1 Signed Report
[2024-09-12] MEDS ORDERED: NA CHLORIDE 0.9% 100 ML ONE (00:51)
[2024-09-12] MEDS ORDERED: NA CHLORIDE 0.9% 500 ML ONE (00:51)
[2024-09-12] MEDS ORDERED: METHOCARBAMOL 1,000 MG/10 ML VIAL ONE (00:51)
[2024-09-12] MEDS ORDERED: KETOROLAC 30 MG/ML INJ ONE (00:51)
[2024-09-12 01:02] LABS: Specific Gravity > 1.030 (1.005-1.030)
[2024-09-12 01:03] LABS: Specific Gravity > 1.030 (1.005-1.030); Sqamous Epithelial <5 /HPF (None Seen); Urine Bacteria None Seen /HPF (<20); Urine Bilirubin NEGATIVE (Negative); Urine Blood 1+ (Negative); Urine Clarity Clear (Clear); Urine Color Yellow (Yellow); Urine Culture Reflex Order NOT NEEDED; Urine Glucose NEGATIVE (Negative); Urine Ketones NEGATIVE (Negative); Urine Microscopic Reflex YN ORDER UMIC; Urine Mucus Slight /HPF (None Seen); Urine Nitrite NEGATIVE (Negative); Urine Protein TRACE (Negative); Urine RBC None Seen /HPF (None Seen); Urine Urobilinogen 1+ (Normal); Urine WBC <5 /HPF (<5)
[2024-09-12 01:08] LABS: Absolute Basophils 0.1 K/uL (0-0.5); Absolute Eosinophils 0.1 K/uL (0-0.5); Absolute Lymphocytes (CBC) 2.3 K/uL (0.7-4.9); Absolute Monocytes 1.2 K/uL (0.1-1.3); Absolute Neutrophil 6.1 K/uL (1.8-8.0); Eosinophils % 1.5 % (0-4.4); Hemoglobin 10.9 g/dL (12.0-15.0); Lymphocytes % 23.5 % (15.3-44.8); MCH 22.9 pg (27.0-35.0); MCHC 33.1 g/dL (32.0-36.0); MCV 69.1 fL (80-100); MPV 8.7 fL (7.6-11.3); Monocytes % 11.9 % (3.3-12.3); Neutrophils % 62.1 % (41.7-73.7); Nucleated Red Blood Cells % 0.1 % (0-0); Platelets 358 thou/uL (152-406); RBC Red Blood Cell Count 4.77 M/uL (3.86-4.86); Red Cell Distribution Width 17.7 % (12.1-15.2)
[2024-09-12 01:17] LABS: Albumin 3.4 g/dL (3.4-5.0); Albumin/Globulin Ratio 0.6 (1.1-1.8); Anion Gap 8.5 mEq/L (5.0-15.0); Bilirubin Total 0.2 mg/dL (0.2-1.0); Globulin 5.3 g/dL (2.3-3.5); Potassium 3.5 mEq/L (3.5-5.1); Protein, Total 8.7 g/dL (6.4-8.2)
[2024-09-12 02:08] LABS: Blood Morphology Comment NOTED (NOT SEEN); Microcytosis 1+; Platelet Estimate ADEQ; Polychromasia SLIGHT; Target Cells 1+; White Blood Cell Scan OK (OK)
--- NOTE | 2024-09-12 03:16 | RAD REPORT ---
CLINICAL HISTORY: Right flank pain. COMPARISON: None. 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 FINDINGS: There are several scattered bibasilar pulmonary nodules with the largest in the right middle lobe justine suring 6 mm. Abdomen: The liver is normal in appearance. There is no biliary dilatation. Gallbladder is normal in appearance. The pancreas and spleen are normal in appearance. Adrenal glands and left kidney are normal. There is minimal fullness of the right renal collecting system. There is no clear obstructing lesion. Abdominal aorta is normal in course and caliber without aneurysm. There is no free air. There is no r etroperitoneal adenopathy. Pelvis: There is no bowel obstruction. Urinary bladder is unremarkable. There is no free fluid. Uteru s is normal in size. Appendix is normal. Skeleton: There are no acute osseous findings. No suspicious bony lesions. IMPRESSION: Minimal fullness of the right renal collecting system without a clear obstructing lesion. Findings co uld be secondary to recently passed calculus versus pyelonephritis. Multiple pulmonary nodules. Most significant: Right solid pulmonary nodule measuring 6 mm. Per Fleischner Society Guidelines, recommend a non-contrast Chest CT at 3-6 months, then consider ano ther non-contrast Chest CT at 18-24 months. If patient is low risk for malignancy, non-contrast Chest CT at 18-24 months is optional. These guidelines do not apply to immunocompromised patients and patients with cancer. Follow up in pa tients with significant comorbidities as clinically warranted. For lung cancer screening, adhere to Lung-RADS guidelines. Reference: Radiology. 2017; 284(1):228-43. Electronically signed by: Michel Powell MD 09/12/2024 03:11 AM [facility] Due to temporary technical issues with the PACS/Short Fuze reporting system, reports are being albino d by the in-house radiologist without review as a courtesy to ensure prompt reporting the interpreting radiologist is fully responsible for the content of the report. Transcribed Date/Time: 09/12/2024 3:16 AM
--- NOTE | 2024-09-12 04:01 | EDPHYS ---
Physician Documentation [facility] Name: Chiquis Gregorio Age: 43 yrs Sex: Female : 1980 Arrival Date: 09/11/2024 Time: 22:31 Bed 7 Private MD: ED Physician Franck Dowell HPI: 09/12 00:00 This 43 yrs old Black Female presents to ER via Wheelchair with complaints of Back cp Pain, Abdominal Pain, Possible Kidney Stone. 00:00 The patient presents with pain that is acute, with no known mechanism of injury. cp 00:00 The symptoms are located in the right mid back, right flank. Onset: The cp symptoms/episode began/occurred today. Associated signs and symptoms: Pertinent negatives: chest pain, constipation, fever, weakness. 00:00 Severity of symptoms: in the emergency department the symptoms are unchanged, despite cp home interventions. 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 Flu vaccine is not up to date. - Infectious Disease History:: Denies. - Social history:: Smoking status: Patient denies any tobacco usage or history of. Patient uses street drugs, marijuana. ROS: 09/12 00:05 Constitutional: Negative for body aches, chills, fever, poor PO intake, cp 00:05 Eyes: Negative for injury, pain, redness, and discharge, cp 00:05 Cardiovascular: Negative for chest pain, 00:05 Respiratory: Negative for cough, shortness of breath, wheezing, 00:05 Abdomen/GI: Positive for abdominal pain, Negative for vomiting, diarrhea, constipation, 00:05 Back: Positive for flank pain, on the right, 00:05 : Negative for difficulty urinating, 00:05 Neuro: Negative for altered mental status, headache, weakness, 00:05 All other systems are negative, Exam: 00:10 Constitutional: The patient appears in no acute distress, alert, awake, non-toxic, well cp developed, well nourished, obese, uncomfortable, 00:10 Head/Face: Normocephalic, atraumatic. cp 00:10 Eyes: Periorbital structures: appear normal, Conjunctiva: normal, no exudate, no injection, Sclera: no appreciated abnormality, Lids and lashes: appear normal, bilaterally, 00:10 ENT: External ear(s): are unremarkable, Nose: is normal, Mouth: Lips: moist, Oral mucosa: moist, Posterior pharynx: Airway: no evidence of obstruction, patent, 00:10 Chest/axilla: Inspection: normal, 00:10 Cardiovascular: Rate: normal, Rhythm: regular, Edema: is not appreciated, JVD: is not appreciated, 00:10 Respiratory: the patient does not display signs of respiratory distress, Respirations: normal, no use of accessory muscles, no retractions, labored breathing, is not present, Breath sounds: are clear throughout, no decreased breath sounds, no stridor, no wheezing, 00:10 Abdomen/GI: Inspection: obese Palpation: soft, in all quadrants, mild abdominal tenderness, in the right lower quadrant, rebound tenderness, is not appreciated, involuntary guarding, is not appreciated, 00:10 Back: CVA tenderness, is absent, 00:10 Neuro: Orientation: to person, place \T\ time. Mentation: is normal, Motor: moves all fours, no focal deficits, Vital Signs: 09/11 22:54 Weight 103.42 kg; Height 5 ft. 1 in. ; Pain 10/10; vc1 23:00 BP 147 / 89; Pulse 63; Resp 18; Temp 98.4; Pulse Ox 100% ; vc1 09/12 00:59 BP 178 / 106; Pulse 56; Resp 18; Temp 98.4; Pulse Ox 100% ; Pain 10/10; bm8 02:14 BP 154 / 86; Pulse 55; Resp 18; Temp 98.4; Pulse Ox 100% ; Pain 6/10; bm8 04:17 BP 159 / 96; Pulse 54; Resp 18; Temp 98.4; Pulse Ox 100% ; Pain 2/10; bm8 09/11 22:54 Body Mass Index 43.08 (103.42 kg, 154.94 cm) vc1 09/11 22:54 Pain Scale: Adult vc1 09/12 00:59 Pain Scale: Adult bm8 02:14 Pain Scale: Adult bm8 04:17 Pain Scale: Adult bm8 [place] Coma Score: 00:59 Eye Response: spontaneous(4). Motor Response: obeys commands(6). Verbal Response: bm8 oriented(5). Total: 15. 02:14 Eye Response: spontaneous(4). Motor Response: obeys commands(6). Verbal Response: bm8 oriented(5). Total: 15. 04:17 Eye Response: spontaneous(4). Motor Response: obeys commands(6). Verbal Response: bm8 oriented(5). Total: 15. MDM: 09/11 22:55 Medical Screening Exam initiated cp 09/12 03:57 Differential diagnosis: arthritis, Fatigue Fracture Joint Injury Osteoporosis. Data sp4 reviewed: vital signs, nurses notes, lab test result(s), CBC, hepatic panel, urinalysis, radiologic studies. Consideration of Admission/Observation Escalation of care including admission/observation considered. ED course: CLINICAL HISTORY: Right flank pain. COMPARISON: None. 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 FINDINGS: There are several scattered bibasilar pulmonary nodules with the largest in the right middle lobe measuring 6 mm. Abdomen: The liver is normal in appearance. There is no biliary dilatation. Gallbladder is normal in appearance. The pancreas and spleen are normal in appearance. Adrenal glands and left kidney are normal. There is minimal fullness of the right renal collecting system. There is no clear obstructing lesion. Abdominal aorta is normal in course and caliber without aneurysm. There is no free air. There is no retroperitoneal adenopathy. Pelvis: There is no bowel obstruction. Urinary bladder is unremarkable. There is no free fluid. Uterus is normal in size. Appendix is normal. Skeleton: There are no acute osseous findings. No suspicious bony lesions. IMPRESSION: Minimal fullness of the right renal collecting system without a clear obstructing lesion. Findings could be secondary to recently passed calculus versus pyelonephritis. Multiple pulmonary nodules. Most significant: Right solid pulmonary nodule measuring 6 mm. Per Fleischner Society Guidelines, recommend a non-contrast Chest CT at 3-6 months,. ED course: Patient advised that she needs repeat CT in 6 months for findings of multiple pulmonary nodules.. 09/11 22:50 Order name: CBC with Diff; Complete Time: 03:38 cp 09/12 01:15 Interpretation: Normal except: HGB 10.9; HCT 33.0; MCV 69.1; MCH 22.9; RDW 17.7. cp 09/11 22:50 Order name: CMP; Complete Time: 03:38 cp 09/11 22:50 Order name: Lipase; Complete Time: 03:38 cp 09/11 22:50 Order name: Test, Urine; Complete Time: 01:14 cp 09/12 01:14 Interpretation: Reviewed. cp 09/11 22:50 Order name: Urinalysis w/ reflexes; Complete Time: 01:14 cp 09/12 01:14 Interpretation: Normal except: Urine SG > 1.030; UBLD 1+; UPROT TRACE; UUROB 1+. cp 09/12 01:14 Order name: CBC Smear Scan; Complete Time: 03:38 EDMS 09/12 00:25 Order name: CT Stone Protocol cp 09/11 22:50 Order name: IV Saline Lock; Complete Time: 00:50 cp 09/11 22:50 Order name: Labs collected and sent; Complete Time: 00:50 cp Administered Medications: 00:59 Drug: NS 0.9% IV 500 ml 500 ml IV at 1 bolus once; to be given as a bolus over 30 bm8 minutes Volume: 500 ml; Route: IV; Rate: 1 bolus; Site: right antecubital; 02:21 Follow up: Response: No adverse reaction; IV Status: Completed infusion; IV Intake: bm8 500ml 00:59 Drug: Ketorolac IVP 15 mg IVP once Route: IVP; Site: right antecubital; bm8 02:21 Follow up: Response: No adverse reaction bm8 00:59 Drug: Methocarbamol IVPB 1 grams IVPB once over 1 hrs; (mix in NS 100 mL) Route: IVPB; bm8 Infused Over: 1 hrs; Site: right antecubital; 02:20 Follow up: Response: No adverse reaction; IV Status: Completed infusion; IV Intake: bm8 100ml Disposition: 03:57 Co-signature as Attending Physician, Franck Dowell MD I agree with the assessment sp4 and plan of care. I reviewed the patient's care provided by Advanced Practice Provider \T\ agree w/ the diagnosis \T\ care plan. I personally saw the pt \T\ performed a substantive portion of the visit, incldng all aspects of the (History/Exam/Medical Decision Making). Disposition Summary: 09/12/24 04:01 Discharge Ordered Problem: new sp4 Symptoms: have improved sp4 Condition: Stable sp4 Diagnosis - Acute right hydronephrosis, multiple pulmonary nodules, right lung 6 mm pulmonary sp4 nodule, acute right flank pain Followup: sp4 - With: Private Physician - When: 7 - 10 days - Reason: Recheck today's complaints Followup: sp4 - With: Tony Mcnair DO - When: 7 - 10 days - Reason: Recheck today's complaints Discharge Instructions: - Discharge Summary Sheet sp4 - Pulmonary Nodule, [id number] sp4 Forms: - Patient Portal Instructions sp4 Prescriptions: - Flomax 0.4 mg Oral capsule - take 1 capsule ORAL route every 24 hours for 14 days; 14 capsule; Refills: 0, sp4 Product Selection Permitted - acetaminophen-codeine 300-60 mg Oral tablet - take 1 tablet ORAL route every 4 hours PRN pain; 15 tablet; Refills: 0, Product sp4 Selection Permitted - ondansetron 8 mg Oral Tablet,disintegrating - take 1 tablet ORAL route every 8 hours PRN nausea; 30 tablet; Refills: 0, sp4 Product Selection Permitted Signatures: Dispatcher [employer] EDAK Thomas Merlos PA PA cp Amanda Gutierrez, RN RN vc1 Franck Dowell MD MD sp4 Mick Galvin RN RN bm8 Corrections: (The following items were deleted from the chart) 09/11 22:57 22:56 PMHx: None; vc1 vc1 09/12 00:26 00:26 Stone Protocol+CT.RAD.BRZ ordered. [facility] EDAK 09/13 01:09/12 00:00 The symptoms are located in the right flank, cp cp
--- NOTE | 2024-09-12 04:01 | ER ---
Nurse's Notes [facility] Name: Chiquis Gregorio Age: 43 yrs Sex: Female : 1980 Arrival Date: 09/11/2024 Time: 22:31 Bed 7 Private MD: Diagnosis: Acute right hydronephrosis, multiple pulmonary nodules, right lung 6 mm pulmonary nodule, acute right flank pain Presentation: 09/11 22:54 Chief complaint: Patient states: feels like someone has a knife in me on the right side vc1 and right back. Coronavirus screen: Client denies travel out of the [place] in the last 14 days. At this time, the client does not indicate any symptoms associated with coronavirus-19. Ebola Screen: Patient negative for fever greater than or equal to 101.5 degrees Fahrenheit, and additional compatible Ebola Virus Disease symptoms Patient denies exposure to infectious person. Patient denies travel to an Ebola-affected area in the 21 days before illness onset. No symptoms or risks identified at this time. Initial Sepsis Screen: Does the patient meet any 2 criteria? No. Patient's initial sepsis screen is negative. Does the patient have a suspected source of infection? No. Patient's initial sepsis screen is negative. Risk Assessment: Do you want to hurt yourself or someone else? Patient reports no desire to harm self or others. Onset of symptoms was September 07, 2024. 22:54 Method Of Arrival: Wheelchair vc1 22:54 Acuity: JIMMY 3 vc1 Triage Assessment: 22:57 General: Appears in no apparent distress. uncomfortable, obese, Behavior is calm, vc1 cooperative, appropriate for age. Pain: Complains of pain in posterior aspect of right lateral abdomen and anterior aspect of right lateral abdomen Pain does not radiate. Pain currently is 10 out of 10 on a pain scale. EENT: No deficits noted. No signs and/or symptoms were reported regarding the EENT system. Neuro: Level of Consciousness is awake, alert, obeys commands, Oriented to person, place, time, situation, Appropriate for age. Cardiovascular: Capillary refill < 3 seconds Patient's skin is warm and dry. Respiratory: Airway is patent Respiratory effort is even, unlabored, Respiratory pattern is regular, symmetrical. GI: Abdomen is round non-distended, obese, Reports lower abdominal pain. : Reports may have passed a kidney stone. Derm: Skin is intact, is healthy with good turgor, Skin is dry, Skin is normal, Skin temperature is warm. Musculoskeletal: Circulation, motion, and sensation intact. Range of motion: intact in all extremities. 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 Flu vaccine is not up to date. - Infectious Disease History:: Denies. - Social history:: Smoking status: Patient denies any tobacco usage or history of. Patient uses street drugs, marijuana. Screenin:59 [facility] ED Fall Risk Assessment (Adult) History of falling in the last 3 months, vc1 including since admission No falls in past 3 months (0 pts) Confusion or Disorientation No (0 pts) Intoxicated or Sedated No (0 pts) Impaired Gait No (0 pts) Mobility Assist Device Used No (0 pt) Altered Elimination No (0 pt) Score/Fall Risk Level 0 - 2 = Low Risk Oriented to surroundings, Maintained a safe environment, Educated pt \T\ family on fall prevention, incl call for assistance when getting out of bed. Abuse screen: Denies threats or abuse. Nutritional screening: No deficits noted. Tuberculosis screening: No symptoms or risk factors identified. Assessment: 09/12 00:59 General: Appears in no apparent distress. uncomfortable, Behavior is calm, cooperative, bm8 appropriate for age. Pain: Complains of pain in abdomen and anterior aspect of right lateral abdomen and posterior aspect of right lateral abdomen Pain currently is 10 out of 10 on a pain scale. Quality of pain is described as aching, crampy, sharp, shooting. Neuro: No deficits noted. Level of Consciousness is awake, alert, obeys commands, Oriented to person, place, time, situation, Appropriate for age Oral Surgery Physician are equal bilaterally Moves all extremities. Full function Gait is steady, Speech is normal, Facial symmetry appears normal, Pupils are PERRLA, Intact. Cardiovascular: Denies chest pain, Capillary refill < 3 seconds in bilateral fingers Patient's skin is warm and dry. Respiratory: Airway is patent Trachea midline Respiratory effort is even, unlabored, Respiratory pattern is regular, symmetrical, Breath sounds are clear bilaterally. GI: Reports lower abdominal pain, nausea, Pain is 10 out of 10 on a pain scale. : Reports pain in right flank(s), lower quadrant(s) in lower back since 5 days ago. EENT: No signs and/or symptoms were reported regarding the EENT system. Derm: No signs and/or symptoms reported regarding the dermatologic system. Musculoskeletal: No signs and/or symptoms reported regarding the musculoskeletal system. 02:14 Reassessment: Patient appears in no apparent distress at this time. Patient and/or bm8 family updated on plan of care and expected duration. Pain level reassessed. Patient is alert, oriented x 3, equal unlabored respirations, skin warm/dry/pink. Patient states symptoms have improved. Pain: Pain currently is 6 out of 10 on a pain scale. 04:17 Reassessment: Patient appears in no apparent distress at this time. No changes from 8 previously documented assessment. Patient and/or family updated on plan of care and expected duration. Pain level reassessed. Patient is alert, oriented x 3, equal unlabored respirations, skin warm/dry/pink. Patient denies pain at this time. Patient states feeling better. Patient states symptoms have improved. Vital Signs: 09/11 22:54 Weight 103.42 kg; Height 5 ft. 1 in. ; Pain 10/10; vc1 23:00 BP 147 / 89; Pulse 63; Resp 18; Temp 98.4; Pulse Ox 100% ; vc1 09/12 00:59 BP 178 / 106; Pulse 56; Resp 18; Temp 98.4; Pulse Ox 100% ; Pain 10/10; bm8 02:14 BP 154 / 86; Pulse 55; Resp 18; Temp 98.4; Pulse Ox 100% ; Pain 6/10; bm8 04:17 BP 159 / 96; Pulse 54; Resp 18; Temp 98.4; Pulse Ox 100% ; Pain 2/10; bm8 09/11 22:54 Body Mass Index 43.08 (103.42 kg, 154.94 cm) vc1 09/11 22:54 Pain Scale: Adult vc1 09/12 00:59 Pain Scale: Adult bm8 02:14 Pain Scale: Adult bm8 04:17 Pain Scale: Adult bm8 [place] Coma Score: 00:59 Eye Response: spontaneous(4). Motor Response: obeys commands(6). Verbal Response: bm8 oriented(5). Total: 15. 02:14 Eye Response: spontaneous(4). Motor Response: obeys commands(6). Verbal Response: bm8 oriented(5). Total: 15. 04:17 Eye Response: spontaneous(4). Motor Response: obeys commands(6). Verbal Response: bm8 oriented(5). Total: 15. ED Course: 09/11 22:34 Patient arrived in ED. gm2 22:42 Thomas Merols PA is PHCP. cp 22:42 Franck Dowell MD is Attending Physician. cp 22:56 Triage completed. vc1 22:57 Arm band placed on right wrist. vc1 09/12 00:42 Mick Galvin, RN is Primary Nurse. bm8 00:50 Test, Urine Sent. vk 00:50 Urinalysis w/ reflexes Sent. vk 00:50 Lipase Sent. vk 00:50 CMP Sent. vk 00:50 CBC with Diff Sent. vk 00:59 Patient has correct armband on for positive identification. Bed in low position. Call bm8 light in reach. Side rails up X 1. Adult w/ patient. Client placed on continuous cardiac and pulse oximetry monitoring. NIBP monitoring applied. Pulse ox on. NIBP on. Door closed. Noise minimized. Warm blanket given. Pillow given. Verbal reassurance given. 00:59 No provider procedures requiring assistance completed. Initial lab(s) drawn, by in, bm8 sent to lab. Urine collected: clean catch specimen. Inserted saline lock: 20 gauge in right forearm, using aseptic technique. Blood collected. Flushed with 10 mL NS. Patient maintains SpO2 saturation greater than 95% on room air. 01:28 CT Stone Protocol In Process Unspecified. EDMS 04:00 Tony Mcnair DO is Referral Physician. sp4 04:17 Provided Education on: post er care. bm8 04:17 IV discontinued, intact, bleeding controlled, No redness/swelling at site. Pressure bm8 dressing applied. Administered Medications: 00:59 Drug: NS 0.9% IV 500 ml 500 ml IV at 1 bolus once; to be given as a bolus over 30 bm8 minutes Volume: 500 ml; Route: IV; Rate: 1 bolus; Site: right antecubital; 02:21 Follow up: Response: No adverse reaction; IV Status: Completed infusion; IV Intake: bm8 500ml 00:59 Drug: Ketorolac IVP 15 mg IVP once Route: IVP; Site: right antecubital; bm8 02:21 Follow up: Response: No adverse reaction bm8 00:59 Drug: Methocarbamol IVPB 1 grams IVPB once over 1 hrs; (mix in NS 100 mL) Route: IVPB; bm8 Infused Over: 1 hrs; Site: right antecubital; 02:20 Follow up: Response: No adverse reaction; IV Status: Completed infusion; IV Intake: bm8 100ml Medication: 09/11 23:00 VIS not applicable for this client. vc1 Intake: 09/12 02:20 IV: 100ml; Total: 100ml. bm8 02:21 IV: 500ml; Total: 600ml. bm8 Outcome: 04:01 Discharge ordered by . sp4 04:17 Discharged to home ambulatory, bm8 04:17 Condition: stable 04:17 Discharge instructions given to patient, family, Instructed on discharge instructions, follow up and referral plans. no drinking with medication, no driving heavy equipment, medication usage, Demonstrated understanding of instructions, follow-up care, medications, 04:19 Prescriptions given X 3, bm8 04:19 Patient left the ED. bm8 Signatures: Dispatcher [employer] EDMS Thomas Merlos PA PA cp Calcote, Vanessa, RN RN 1 Franck Dowell MD MD sp4 Salina Braxton Vivian vk McDonald, Brad, RN RN bm8 Corrections: (The following items were deleted from the chart) 09/11 22:57 22:56 PMHx: None; vc1 vc1
[2024-09-13 02:41] VITALS: BP 159/96; TEMP 98.4; O2SAT 100
== END 2024-09-12 04:19 | disposition home or self-care (01) ==
LOC: ER 22:31
DX: N13.30 Unspecified hydronephrosis (principal); R91.8 Other nonspecific abnormal finding of lung field
CPT/HCPCS: 96365; 85025; 81001; 36415; 81025; 83690; 80053; 76377; 74176; 96375; 99284; J2800; J7040